=== PATIENT | female | born 1960 | race Caucasian/White ===

== ENCOUNTER 2018-07-05 08:00 | Outpatient (CLI) | payer OTHER | END 2018-07-05 09:00 | disposition home or self-care (01) | LOC: D.MAMMO 08:00 | PROVIDERS: ATTEND Obstetrics & Gynecology | DX: Z12.31 Encounter for screening mammogram for malignant neoplasm of breast (principal) ==

== ENCOUNTER 2018-08-30 19:04 | Inpatient (IN) | payer OTHER ==
[~2018-08-30] VITALS: Ht 162.6 cm; Wt 93.7 kg
[2018-08-30] MEDS ORDERED: GLUCOPHAGE500 MG PO (19:10)
[2018-08-30] MEDS ORDERED: LISINOPRIL20 MG PO (19:11)
[2018-08-30] MEDS ORDERED: NEURONTIN 300300 MG PO (19:11)
[2018-08-30] MEDS ORDERED: INSULIN PEN (19:11)
[2018-08-30] MEDS ORDERED: CYCLOBENZAPRINE10 MG PO (19:11)
[2018-08-30] MEDS ORDERED: VISTARIL25 MG PO (19:11)
[2018-08-30] MEDS ORDERED: BUSPIRONE HCL30 MG PO (19:11)
[2018-08-30] MEDS ORDERED: NORVASC10 MG PO (19:11)
[2018-08-30] MEDS ORDERED: SEROQUEL25 MG PO (19:12)
[2018-08-30] MEDS ORDERED: TRICEBA (19:12)
--- NOTE | 2018-08-30 19:25 | NUR ---
PT TRANSPORTED TO CT VIA STRETCHER AT THIS TIME. NO DISTRESS NOTED.
--- NOTE | 2018-08-30 20:44 | NUR ---
CONTACTED [facility] FOR PSYCH SCREENING. ADVISED PROM BURN OFF OPERATOR.
--- NOTE | 2018-08-30 21:02 | NUR ---
DIFFICULT IV STICK. EDP DOWNEN AT BEDSIDE TO INSERT EJ.
[2018-08-30 21:05] LABS: BASOPHILS 0.5 % (0-2); EOSINOPHILS 2.8 % (0-7); HEMATOCRIT 37.2 % (36.0-48.0); HEMOGLOBIN 11.9 g/dL (12-16); IMMATURE GRANULOCYTES 0.2 % (0-5); LYMPHOCYTES 27.9 % (15-50); MCV 61.4 fL (80.0-100.0); MEAN PLATELET VOLUME 9.3 fL (7.4-10.4); MONOCYTES 4.8 % (2-11); NEUTROPHILS 63.8 % (40-80); PLATELET COUNT 267 10x3/uL (130-400); RBC 6.06 10x6/uL (4.00-5.40); RDW 15.9 % (11.5-14.5); WBC 8.2 10x3/uL (4.8-10.8)
[2018-08-30 21:09] LABS: MCH 19.6 pg (26.0-34.0)
--- NOTE | 2018-08-30 21:10 | NUR ---
DR FRANK NOTIFIED AND REVIEWED PT BEHAVIOR AND ASSESSMENT RESULTS. PT IS A LOW RISK PER DR FRANK. DR FRANK STATED TO GIVE RESOURCES TO PT AT TIME OF DISCHARGE. NO FURTHER ORDERS AT THIS TIME. RESOURCES REVIEWED WITH PT AND SHE VERBALIZED UNDERSTANDING.
[2018-08-30 21:15] LABS: APTT 35.2 SECONDS (22.8-39.4); INR 1.06 (0.85-1.17); PROTIME 13.3 SECONDS (11.6-15.0)
--- NOTE | 2018-08-30 21:24 | NUR ---
PER PSYCH SCREEN PATIENT LOW RISK
[2018-08-30 21:36] LABS: ALKALINE PHOSPHATASE 125 U/L (46-116); ALT (SGPT) 32 U/L (10-68); BILIRUBIN - TOTAL 0.42 mg/dL (0.2-1.3); CALC OSMOLALITY 283 mosm/kg (275-300); CALCIUM 9.1 mg/dL (8.5-10.1); CARBON DIOXIDE 28.5 mmol/L (21.0-32.0); CHLORIDE - SERUM 106 mmol/L (98-107); CREATININE - SERUM 0.8 mg/dL (0.6-1.3); GLUCOSE 98 mg/dL (74-106); PROTEIN - SERUM 7.6 g/dL (6.4-8.2); SODIUM 141 mmol/L (136-145); UREA NITROGEN 20 mg/dL (7-18); eGFR NON AFRICAN AMERICAN 77 mL/min (90-120)
[2018-08-30 21:47] LABS: CREATINE KINASE 97 UL (21-215); MAGNESIUM - SERUM 1.9 mg/dL (1.8-2.4); THYROID STIMULATING HORMONE 3.38 uIU/mL (0.36-3.74)
[2018-08-30 21:48] VITALS: BP 119/77
[2018-08-30 21:50] LABS: TROPONIN-I < 0.017 ng/mL (0.000-0.060)
--- NOTE | 2018-08-30 21:52 | NUR ---
PT LAYING IN BED. NO DISTRESS NOTED. COLOR WNL FOR RACE. PT DENIES IMPROVEMENT IN SYMPTOMS AT THIS TIME. PT STILL EXHIBITING SOME SLURRED SPEECH. FAMILY MEMBER AT BEDSIDE.
--- NOTE | 2018-08-30 23:59 | NUR ---
PLACED PATIENT ON BEDPAN. DECREASED MOVEMENT NOTED TO RIGHT SIDE AT THIS TIME. PT VOIDED CLEAR YELLOW URINE. LINENS CHANGED. BLANKET PROVIDED.
[2018-08-31] VITALS (7 sets, daily range): BP systolic 125–146; BP diastolic 59–84; Ht 162.6 cm; Wt 93.7 kg
--- NOTE | 2018-08-31 01:00 | NUR ---
PT MOVED TO DIFFERENT ROOM FOR CENTRAL LINE PLACEMENT.
--- NOTE | 2018-08-31 02:00 | NUR ---
PT STABLE, CALL [facility] WITHIN REACH, WILL CONTINUE TO MONITOR.
--- NOTE | 2018-08-31 03:12 | NUR ---
BHANU KEARNS, AAO X4, DENIES NEEDS, CALL LIGHT WITHIN REACH, WILL CONTINUE TO MONITOR.
[2018-08-31] MEDS ORDERED: SEROQUEL25 MG PO (04:29)
--- NOTE | 2018-08-31 06:24 | NUR ---
PATIENT UNABLE TO MOVE RIGHT ARM AND LEG, SYMPTOMS WORSE SINCE INITIAL ASSESSMENT UPON PATIENT ARRIVING TO FLOOR. PATIENT CAN LIGHTLY SQUEEZE MY HAND. SHE CAN FEEL ME RUNNING MY FINGERS UP AND DOWN FEET. NO ROM. ARMANI NEWELL. ORDERS GIVEN FOR STAT MRI OF BRAIN.
[2018-08-31 11:02] LABS: CHOL - HDL RATIO 3.7 ratio (2.3-4.1); LDL-HDL RATIO 2.2 ratio (1.5-3.5)
--- NOTE | 2018-08-31 11:31 | NUR ---
I have reviewed this patient and I concur with the Shift Assessment completed by the Licensed Practical Nurse today this shift.
[2018-08-31 16:03] LABS: % SATURATION 24 % (15-55); IRON 77 ug/dl (35-150); TOTAL IRON BIND CAPACITY 315 ug/dl (260-445); UNSAT IRON BIND CAPACITY 238 ug/dl (150-375)
--- NOTE | 2018-08-31 17:00 | MORECARE ---
CASE MANAGEMENT DISCHARGE SUMMARY PATIENT: WALLY DUMONT UNIT: [id number] ADM DATE: 08/31/18 AGE: 58 : 56 SEX: F ROOM/BED: D.2109 AUTHOR: TATO AKERS PHYSICIAN: REFERRING PHYSICIAN: NINA GUTIERREZ MD DATE OF SERVICE: 08/31/18 Discharge Plan Patient Name: WALLY DUMONT [facility] [facility] 1960 Planned Disposition: Inpatient Rehab Anticipated Discharge Date: 09/01/18 Discharge Date: Expected LOS: 1 Initial Reviewer: [email or web address] Initial Review Date: 08/31/2018 Generated: 08/31/18 6:00 pm DCPIA - Discharge Planning Initial Assessment Updated by [email or web address]: Rodolfo Whalen on 08/31/18 4:54 pm * Is the patient Alert and Oriented? Yes * How many steps to enter\exit or inside your home? * PCP KING MAKER SHI AT [facility] * Pharmacy [facility] * Preadmission Environment Residential * Facility Name [facility] * ADLs Independent * Equipment None * Other Equipment NO MEDICAL EQUIPMENT PROVIDER PREFERENCE * List name and contact numbers for known caregivers / representatives who currently or will assist patient after discharge: VALERIE MCKNIGHT, HISTORY FACULTY MEMBER, * Verbal permission to speak to the caregivers and representatives has been obtained from the patient. N/A * Community resources currently utilized None * Please name any agencies selected above. NONE * Additional services required to return to the preadmission environment? Yes * Can the patient safely return to the preadmission environment? Yes * Has this patient been hospitalized within the prior 30 days at any hospital? No Patient Name: WALLY DUMONT Page [phone] at 1700 All edits/amendments must be made on the electronic document DICTATION DATE: 08/31/181658 PHYSICAL THERAPY DIRECTOR: MOLLY 08/31/181658 RPT#: [id number] DC DATE: STATUS: ADM IN [facility] [address] [place] [address] END OF REPORT
--- NOTE | 2018-08-31 17:10 | MORECARE ---
CASE MANAGEMENT DISCHARGE SUMMARY PATIENT: WALLY DUMONT UNIT: [id number] ADM DATE: 08/31/18 AGE: 58 : 56 SEX: F ROOM/BED: D.2105 AUTHOR: OSWALD,DOC PHYSICIAN: REFERRING PHYSICIAN: NINA GUTIERREZ MD DATE OF SERVICE: 08/31/18 Discharge Plan Patient Name: WALLY DUMONT Facility: [facility]:[place] : 1960 Planned Disposition: Inpatient Rehab Anticipated Discharge Date: 09/01/18 Discharge Date: Expected LOS: 1 Initial Reviewer: [email or web address] Initial Review Date: 08/31/2018 Generated: 08/31/18 6:09 pm Comments DCP- Discharge Planning Updated by [email or web address]: Rodolfo Whalen on 08/31/18 4:[address] Patient Name: WALLY DUMONT Admission Status: ER Accout number: [id number] Admission Date: 08-31-2018 : 1960 Admission Diagnosis: Attending: NINA GUTIERREZ Current LOS: 1 Anticipated DC Date: 09-01-2018 Planned Disposition: Inpatient Rehab Primary Insurance: [employer] INS EXCHANGE PLANNED EXTERNAL PROVIDER: [facility] INPATIENT REHAB Discharge Planning Comments: CM SPOKE TO DR. GUTIERREZ WHO INFORMED CM THAT PT WILL NEED REHAB PLACEMENT. CM MET WITH PT IN ROOM TO DISCUSS DISCHARGE PLANNING AND NEEDS. PT REPORTS LIVING AT A CHEM FREE HOUSE WITH FOUR OTHER WOMEN, PT WAS LIVING INDEPENDENTLY WITH NO MEDICAL EQUIPMENT OR OUTSIDE SERVICES ASSISTING IN THE HOME PRIOR TO THIS EVENT. CM DISCUSSED AVAILABILITY OF HOME HEALTH, REHAB SERVICES AND MEDICAL EQUIPMENT. PT REPORTS HAVING AMBETTER THROUGH AFFORDABLE HEALTHCARE ACT AND WOULD LIKE REHAB IF IT IS AVAILABLE. PT IS TEARFUL BUT ACCEPTING THAT SHE MAY HAVE TO GO TO A [facility] FACILITY IF NECESSARY. CM DISCUSSED REHAB AT [facility], PT IN AGREEMENT IF THEY WILL ACCEPT HER INSURANCE. PT HAS NOT HAD ANY HOSPITAL STAYS IN THE YEAR AND SHOULD HAVE ACUTE DAYS FOR REHAB. CM CALLED ELLIOT AT [facility], . ELLIOT REPORTS PT IS GOOD CANDIDATE FOR REHAB SERVICES, THEY WILL PROCESS REFERRAL AND ATTEMPT TO GET INSURANCE AUTHORIZATION FOR SERVICES WHEN REFERRAL IS RECEIVED. CM WAITING THERAPY EVALUATIONS AND WILL FAX REFERRAL TO [facility] INPATIENT REHAB SOON POSSIBLE. Fly Rail Operator: Rodolfo Whalen DCPIA - Discharge Planning Initial Assessment Updated by [email or web address]: Rodolfo Whalen on 08/31/18 4:54 pm * Is the patient Alert and Oriented? Yes * How many steps to enter\exit or inside your home? * PCP KAYLA OSULLIVAN AT [facility] * Pharmacy [facility] * Preadmission Environment Alf * Facility Name [facility] * ADLs Independent * Equipment None * Other Equipment NO MEDICAL EQUIPMENT PROVIDER PREFERENCE * List name and contact numbers for known caregivers / representatives who currently or will assist patient after discharge: VALERIE MCKNIGHT, ROOM SERVICE ASSOCIATE, * Verbal permission to speak to the caregivers and representatives has been obtained from the patient. N/A * Community resources currently utilized None * Please name any agencies selected above. NONE * Additional services required to return to the preadmission environment? Yes * Can the patient safely return to the preadmission environment? Yes * Has this patient been hospitalized within the prior 30 days at any hospital? No Last DP export: 08/31/18 4:00 p Patient Name: WALLY DUMONT Page 38854 at 1710 All edits/amendments must be made on the electronic document DICTATION DATE: 08/31/181708 INLAYER SILVER: MOLLY 08/31/181708 RPT#: [id number] DC DATE: STATUS: ADM IN [facility] [address] [place] [address] END OF REPORT
--- NOTE | 2018-08-31 19:27 | NUR ---
REPORT RECIEVED. PT STATES SHE IS UNCOMFORTABLE. MOVED PT UP IN BED. PILLOWS PLACES UNDER RT KNEE AND RT ARM. FAMILY IS AT BEDSIDE. CALL LIGHT WITHIN REACH. BED IN LOWEST POSITION. NO S/S OF DISTRESS. BREATHING EVEN AND UNLABORED. PT FARZANA ANY NEEDS AT THIS TIME. WILL CONT POC.
--- NOTE | 2018-08-31 20:00 | NUR ---
PT TRYING TO GET OUT OF BED. PT SCREAMING FOR HELP. PT STATES SHE HAS BEEN ON THE CALL LIGHT FOR 30 MINS AND NEEDING TO USE THE BATHROOM. PT IS CRYING AND ANXIOUS. GOT PT TO BED SIDE LUCIANO WITH HELP OF PROJECT DIRECTOR. PT CALMED DOWN AFTER 5MINS. PT BACK TO BED WITH HELP OF PROJECT DIRECTOR. PT FARZANA ANY FURTHER NEEDS AT THIS TIME. REASSURED PT THAT WHEN ON THE CALL LIGHT I WILL BE THERE SOON I CAN AND TO NOT GET OUT OF BED WITHOUT ASSISTANCE. PT VERBLIZED UNDERSTANDING. CALL LIGHT WITHIN REACH. BED IN LOWEST POSITION. WILL CONT POC.
[2018-08-31 22:43] LABS: APPEARANCE CLEAR (CLEAR); BACTERIA FEW /hpf (NONE SEEN); BILIRUBIN NEGATIVE (NEGATIVE); COLOR YELLOW (YELLOW); GLUCOSE NEGATIVE (NEGATIVE); KETONE NEGATIVE (NEGATIVE); NITRITE NEGATIVE (NEGATIVE); PROTEIN NEGATIVE (NEGATIVE); RED CELLS - URINE OCC /hpf (0-5); SPECIFIC GRAVITY 1.015 (1.005-1.020); UROBILINOGEN NORMAL (NORMAL); WHITE CELLS - URINE 0-5 /hpf (0-5)
[2018-09-01] VITALS: BP 111/72
--- NOTE | 2018-09-01 00:30 | NUR ---
PT RESTING AT THIS TIME. BREATHING EVEN AND UNLABORED. NO S/S OF DISTRESS. CALL LIGHT WITHIN REACH. BED IN LOWEST POSITION. NO NEEDS AT THIS TIME. WILL CONT. WITH POC.
--- NOTE | 2018-09-01 01:39 | NUR ---
PT UP TO BED SIDE TOILET WITH 2 PERSON ASSIST. PT REFUSES THE BED GRANDA. WILL CONT TO ENCOURAGE THE USE OF A BED GRANDA.
[2018-09-01 04:00] VITALS: BP 120/62
[2018-09-01 05:57] LABS: BASOPHILS 0.7 % (0-2); EOSINOPHILS 3.6 % (0-7); HEMOGLOBIN 10.8 g/dL (12-16); IMMATURE GRANULOCYTES 0.2 % (0-5); LYMPHOCYTES 33.6 % (15-50); MCHC 31.8 g/dL (31.0-37.0); MCV 61.2 fL (80.0-100.0); MEAN PLATELET VOLUME 9.3 fL (7.4-10.4); MONOCYTES 6.5 % (2-11); NEUTROPHILS 55.4 % (40-80); PLATELET COUNT 222 10x3/uL (130-400); RBC 5.56 10x6/uL (4.00-5.40); RDW 15.8 % (11.5-14.5)
[2018-09-01 06:26] LABS: MCH 19.4 pg (26.0-34.0)
[2018-09-01 06:27] LABS: CALC OSMOLALITY 286 mosm/kg (275-300); CALCIUM 8.7 mg/dL (8.5-10.1); CARBON DIOXIDE 28.2 mmol/L (21.0-32.0); CHLORIDE - SERUM 108 mmol/L (98-107); CHOL - HDL RATIO 3.7 ratio (2.3-4.1); CHOLESTEROL, TOTAL 147 mg/dL (0-200); CREATININE - SERUM 0.6 mg/dL (0.6-1.3); GLUCOSE 103 mg/dL (74-106); HDL CHOLESTEROL 40 mg/dL (32-96); LDL CHOLESTEROL 85 mg/dL (0-100); LDL-HDL RATIO 2.1 ratio (1.5-3.5); SODIUM 144 mmol/L (136-145); TRIGLYCERIDE 112 mg/dL (30-200); eGFR NON AFRICAN AMERICAN > 90 mL/min (90-120)
[2018-09-01 06:28] LABS: UREA NITROGEN 12 mg/dL (7-18)
--- NOTE | 2018-09-01 06:43 | NUR ---
PT LAYING ON LEFT SIDE. BREATHING EVEN AND UNLABORED. NO S/S OF DISTRESS. CLV PATENT NS @ 75ML/HR. PT FARZANA ANY NEEDS AT THIS TIME. CALL LIGHT WITHIN REACH. BED IN LOWEST POSITION. WILL CONT WITH POC.
--- NOTE | 2018-09-01 08:41 | NUR ---
RECIEVED REPORT. PATIENT IS AWAKE AND ALERT. SHE IS ANXIOUS AND FRUSTRATED AT THIS TIME. 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
--- NOTE | 2018-09-01 08:50 | MORECARE ---
CASE MANAGEMENT DISCHARGE SUMMARY PATIENT: WALLY DUMONT UNIT: [id number] ADM DATE: 08/31/18 AGE: 58 : 56 SEX: F ROOM/BED: D.210 AUTHOR: OSWALD,DOC PHYSICIAN: REFERRING PHYSICIAN: NINA GUTIERREZ MD DATE OF SERVICE: 09/01/18 Discharge Plan Patient Name: WALLY DUMONT Facility: [facility]:[place] : 1960 Planned Disposition: Inpatient Rehab Anticipated Discharge Date: 09/01/18 Discharge Date: Expected LOS: 1 Initial Reviewer: [email or web address] Initial Review Date: 08/31/2018 Generated: 09/01/18 9:50 am Comments DCP- Discharge Planning Updated by [email or web address]: Rodolfo Whalen on 08/31/18 4:[address] Patient Name: WALLY DUMONT Admission Status: ER Accout number: [id number] Admission Date: 08-31-2018 : 1960 Admission Diagnosis: Attending: NINA GUTIERREZ Current LOS: 1 Anticipated DC Date: 09-01-2018 Planned Disposition: Inpatient Rehab Primary Insurance: [employer] INS EXCHANGE PLANNED EXTERNAL PROVIDER: [facility] INPATIENT REHAB Discharge Planning Comments: CM SPOKE TO DR. GUTIERREZ WHO INFORMED CM THAT PT WILL NEED REHAB PLACEMENT. CM MET WITH PT IN ROOM TO DISCUSS DISCHARGE PLANNING AND NEEDS. PT REPORTS LIVING AT A CHEM FREE HOUSE WITH FOUR OTHER WOMEN, PT WAS LIVING INDEPENDENTLY WITH NO MEDICAL EQUIPMENT OR OUTSIDE SERVICES ASSISTING IN THE HOME PRIOR TO THIS EVENT. CM DISCUSSED AVAILABILITY OF HOME HEALTH, REHAB SERVICES AND MEDICAL EQUIPMENT. PT REPORTS HAVING AMBETTER THROUGH AFFORDABLE HEALTHCARE ACT AND WOULD LIKE REHAB IF IT IS AVAILABLE. PT IS TEARFUL BUT ACCEPTING THAT SHE MAY HAVE TO GO TO A RETIREMENT FACILITY IF NECESSARY. CM DISCUSSED REHAB AT [facility], PT IN AGREEMENT IF THEY WILL ACCEPT HER INSURANCE. PT HAS NOT HAD ANY HOSPITAL STAYS IN THE YEAR AND SHOULD HAVE ACUTE DAYS FOR REHAB. CM CALLED ELLIOT AT [facility], . ELLIOT REPORTS PT IS GOOD CANDIDATE FOR REHAB SERVICES, THEY WILL PROCESS REFERRAL AND ATTEMPT TO GET INSURANCE AUTHORIZATION FOR SERVICES WHEN REFERRAL IS RECEIVED. CM WAITING THERAPY EVALUATIONS AND WILL FAX REFERRAL TO [facility] INPATIENT REHAB SOON POSSIBLE. Slab Lifting Supervisor: Rodolfo Whalen DCPIA - Discharge Planning Initial Assessment Updated by [email or web address]: Rodolfo Whalen on 08/31/18 4:54 pm * Is the patient Alert and Oriented? Yes * How many steps to enter\exit or inside your home? * PCP KAYLA OSULLIVAN AT [facility] * Pharmacy [facility] * Preadmission Environment Chcf * Facility Name [facility] * ADLs Independent * Equipment None * Other Equipment NO MEDICAL EQUIPMENT PROVIDER PREFERENCE * List name and contact numbers for known caregivers / representatives who currently or will assist patient after discharge: VALERIE MCKNIGHT, LINE WORKER, * Verbal permission to speak to the caregivers and representatives has been obtained from the patient. N/A * Community resources currently utilized None * Please name any agencies selected above. NONE * Additional services required to return to the preadmission environment? Yes * Can the patient safely return to the preadmission environment? Yes * Has this patient been hospitalized within the prior 30 days at any hospital? No External Providers External Provider: [facility] Next Contact Date: 09/01/2018 Service Request Date: Service Type: Resolution: Reviewer: Comments: Last DP export: 08/31/18 4:09 p Patient Name: WALLY DUMONT Page [phone] at 0850 All edits/amendments must be made on the electronic document DICTATION DATE: 09/01/1849 AVIONICS SYSTEMS REPAIRER: MOLLY 09/01/18 0849 RPT#: [id number] DC DATE: STATUS: ADM IN [facility] [address] [place] [address] END OF REPORT
--- NOTE | 2018-09-01 08:58 | MORECARE ---
CASE MANAGEMENT DISCHARGE SUMMARY PATIENT: WALLY DUMONT UNIT: [id number] ADM DATE: 08/31/18 AGE: 58 : 56 SEX: F ROOM/BED: D.2105 AUTHOR: OSWALD,DOC PHYSICIAN: REFERRING PHYSICIAN: NINA GUTIERREZ MD DATE OF SERVICE: 09/01/18 Discharge Plan Patient Name: WALLY DUMONT Facility: [facility]:[place] : 1960 Planned Disposition: Inpatient Rehab Anticipated Discharge Date: 09/01/18 Discharge Date: Expected LOS: 1 Initial Reviewer: [email or web address] Initial Review Date: 08/31/2018 Generated: 09/01/18 9:57 am Comments DCP- Discharge Planning Updated by [email or web address]: Rodolfo Whalen on 09/01/18 7:[address] Patient Name: WALLY DUMONT Encounter No: [id number] : 1960 Primary Insurance: [employer] INS EXCHANGE Anticipated DC Date: 09-01-2018 Planned Disposition: Inpatient Rehab External Planned Provider: [facility] DCP follow-up note: CM [facility], . CM WAITING OCCUPTATIONAL THERAPY EVALUATION AND WILL FAX TO [facility] WHEN DOCUMENTED. THIS IS REQUIRED FOR INSURANCE AUTHORIZATION PT HAS MANAGED MEDICAID INSURANCE. JULIEN DURAND DCP- Discharge Planning Updated by [id number]: Rodolfo Whalen on 08/31/18 4:[address] Patient Name: WALLY DUMONT Admission Status: ER Accout number: [id number] Admission Date: 08-31-2018 : 1960 Admission Diagnosis: Attending: NINA GUTIERREZ Current LOS: 1 Anticipated DC Date: 09-01-2018 Planned Disposition: Inpatient Rehab Primary Insurance: [employer] INS EXCHANGE PLANNED EXTERNAL PROVIDER: [facility] INPATIENT REHAB Discharge Planning Comments: CM SPOKE TO DR. GUTIERREZ WHO INFORMED CM THAT PT WILL NEED REHAB PLACEMENT. CM MET WITH PT IN ROOM TO DISCUSS DISCHARGE PLANNING AND NEEDS. PT REPORTS LIVING AT A CHEM FREE HOUSE WITH FOUR OTHER WOMEN, PT WAS LIVING INDEPENDENTLY WITH NO MEDICAL EQUIPMENT OR OUTSIDE SERVICES ASSISTING IN THE HOME PRIOR TO THIS EVENT. CM DISCUSSED AVAILABILITY OF HOME HEALTH, REHAB SERVICES AND MEDICAL EQUIPMENT. PT REPORTS HAVING AMBETTER THROUGH AFFORDABLE HEALTHCARE ACT AND WOULD LIKE REHAB IF IT IS AVAILABLE. PT IS TEARFUL BUT ACCEPTING THAT SHE MAY HAVE TO GO TO A [facility] FACILITY IF NECESSARY. CM DISCUSSED REHAB AT [facility], PT IN AGREEMENT IF THEY WILL ACCEPT HER INSURANCE. PT HAS NOT HAD ANY HOSPITAL STAYS IN THE YEAR AND SHOULD HAVE ACUTE DAYS FOR REHAB. CM CALLED ELLIOT AT [facility], . ELLIOT REPORTS PT IS GOOD CANDIDATE FOR REHAB SERVICES, THEY WILL PROCESS REFERRAL AND ATTEMPT TO GET INSURANCE AUTHORIZATION FOR SERVICES WHEN REFERRAL IS RECEIVED. CM WAITING THERAPY EVALUATIONS AND WILL FAX REFERRAL TO [facility] INPATIENT REHAB SOON POSSIBLE. Edge Worker: Rodolfo Whalen DCPIA - Discharge Planning Initial Assessment Updated by [email or web address]: Rodolfo Whalen on 08/31/18 4:54 pm * Is the patient Alert and Oriented? Yes * How many steps to enter\exit or inside your home? * PCP KAYLA OSULLIVAN AT [facility] * Pharmacy [facility] * Preadmission Environment Long-Term * Facility Name [facility] * ADLs Independent * Equipment None * Other Equipment NO MEDICAL EQUIPMENT PROVIDER PREFERENCE * List name and contact numbers for known caregivers / representatives who currently or will assist patient after discharge: VALERIE MCKNIGHT, SECRETARIAL TEACHER, * Verbal permission to speak to the caregivers and representatives has been obtained from the patient. N/A * Community resources currently utilized None * Please name any agencies selected above. NONE * Additional services required to return to the preadmission environment? Yes * Can the patient safely return to the preadmission environment? Yes * Has this patient been hospitalized within the prior 30 days at any hospital? No Last DP export: 09/01/18 7:50 a Patient Name: WALLY DUMONT Page [phone] at 0858 All edits/amendments must be made on the electronic document DICTATION DATE: 09/01/18856 POTATO CHIP PROCESSING SUPERVISOR: MOLLY 09/01/18856 RPT#: [id number] DC DATE: STATUS: ADM IN [facility] [address] [place] [address] END OF REPORT
[2018-09-01 09:55] VITALS: BP 136/87
[2018-09-01 12:53] VITALS: BP 161/96
[2018-09-01 16:44] VITALS: BP 150/91
--- NOTE | 2018-09-01 19:46 | NUR ---
EVENING ROUNDS MADE. PATIENT IS AWAKE, A&OX4. PATIENT HAS RT CVL TO JUGULAR, PATENT WITH NS RUNNING @75ML/HR, DRSG SOILED WAS NOT CHANGED ON PREVIOUS SHIFT. PATIENT HAS LT FA SL, DRSG C/D/I. NEURO CHECK COMPLETE. PATIENT RIGHT SIDE FLACCID, SLURRED SPEECH. WILL CPOC. CL IN REACH. BED LOCKED AND LOWERED. FALL PRECAUTIONS IN PLACE. WILL CTM.
[2018-09-01 20:00] VITALS: BP 130/76; BP 136/70
--- NOTE | 2018-09-01 21:57 | NUR ---
PATIENT REQUESTION ATIVAN FOR ANXIETY. ADMINISTERED PRN ATIVAN PER ORDERS. CL IN REACH, BED LOCKED AND IN LOWESTED POSITION. PATIENT DENIES FURHTER NEEDS. BREATHING EVEN AND UNLABORED. WILL CTM.
--- NOTE | 2018-09-01 23:45 | NUR ---
CHANGED RT JUGULAR CVL DRSG.
--- NOTE | 2018-09-02 01:45 | NUR ---
PATIENT REQUESTED PRN ATIVAN FOR ANXIETY. DOSE ADMINISTER PER ORDERS. PATIENTS SHOWS NO S/SX OF DISTRESS. CL IN REACH, BED LOCKED AND IN LOWEST POSITION. WILL CTM.
[2018-09-02 04:00] VITALS: BP 102/56
[2018-09-02 04:58] LABS: BASOPHILS 0.8 % (0-2); HEMATOCRIT 33.5 % (36.0-48.0); HEMOGLOBIN 10.6 g/dL (12-16); IMMATURE GRANULOCYTES 0.2 % (0-5); LYMPHOCYTES 35.8 % (15-50); MCHC 31.6 g/dL (31.0-37.0); MCV 61.2 fL (80.0-100.0); MEAN PLATELET VOLUME 9.2 fL (7.4-10.4); MONOCYTES 6.5 % (2-11); NEUTROPHILS 52.7 % (40-80); PLATELET COUNT 214 10x3/uL (130-400); RBC 5.47 10x6/uL (4.00-5.40); RDW 15.8 % (11.5-14.5); WBC 6.2 10x3/uL (4.8-10.8)
[2018-09-02 05:16] LABS: MCH 19.4 pg (26.0-34.0)
[2018-09-02 05:18] LABS: CALC OSMOLALITY 288 mosm/kg (275-300); CALCIUM 8.2 mg/dL (8.5-10.1); CARBON DIOXIDE 27.7 mmol/L (21.0-32.0); CHLORIDE - SERUM 109 mmol/L (98-107); GLUCOSE 116 mg/dL (74-106); POTASSIUM - SERUM 3.8 mmol/L (3.5-5.1); SODIUM 144 mmol/L (136-145); UREA NITROGEN 14 mg/dL (7-18); eGFR NON AFRICAN AMERICAN 77 mL/min (90-120)
[2018-09-02 05:27] LABS: CREATININE - SERUM 0.8 mg/dL (0.6-1.3)
[2018-09-02 08:22] VITALS: BP 135/81
[2018-09-02] MEDS ORDERED: PLAVIX75 MG PO (13:19)
[2018-09-02] MEDS ORDERED: ZOCOR20 MG PO (13:20)
[2018-09-02] MEDS ORDERED: ASPIRIN325 MG PO (13:21)
[2018-09-02 13:22] VITALS: BP 132/76
--- NOTE | 2018-09-02 14:37 | NUR ---
PATIENT LAYING IN BED ON BACK WITH HOB ELEVATED 30 DEGREES. PATIENT IS VISITING WITH FAMILY. PATIENT DENIES ANY NEEDS OR PAIN. WILL CONTINUE TO MONITOR. SR UP X2 BED IN LOW POSITION AND CALL LIGHT IN REACH.
--- NOTE | 2018-09-02 17:33 | MORECARE ---
CASE MANAGEMENT DISCHARGE SUMMARY PATIENT: WALLY DUMONT UNIT: [id number] ADM DATE: 08/31/18 AGE: 58 : 56 SEX: F ROOM/BED: D.2108 AUTHOR: OSWALD,DOC PHYSICIAN: REFERRING PHYSICIAN: LUCRETIA KNIGHT MD DATE OF SERVICE: 09/02/18 Discharge Plan Patient Name: WALLY DUMONT Facility: [facility]:[place] : 1960 Planned Disposition: Inpatient Rehab Anticipated Discharge Date: 09/03/18 Discharge Date: Expected LOS: 3 Initial Reviewer: [id number] Initial Review Date: 08/31/2018 Generated: 09/02/18 6:33 pm Comments DCP- Discharge Planning Updated by [email or web address]: Rodolfo Whalen on 09/01/18 7:[address] Patient Name: WALLY DUMONT Encounter No: [id number] : 1960 Primary Insurance: [employer] INS EXCHANGE Anticipated DC Date: 09-01-2018 Planned Disposition: Inpatient Rehab External [facility] DCP follow-up note: CM [facility], . CM WAITING OCCUPTATIONAL THERAPY EVALUATION AND WILL FAX TO [facility] WHEN DOCUMENTED. THIS IS REQUIRED FOR INSURANCE AUTHORIZATION PT HAS MANAGED MEDICAID INSURANCE. JULIEN DURAND DCP- Discharge Planning Updated by [email or web address]: Rodolfo Whalen on 08/31/18 4:[address] Patient Name: WALLY DUMONT Admission Status: ER Accout number: [id number] Admission Date: 08-31-2018 : 1960 Admission Diagnosis: Attending: NINA GUTIERREZ Current LOS: 1 Anticipated DC Date: 09-01-2018 Planned Disposition: Inpatient Rehab Primary Insurance: [employer] INS EXCHANGE PLANNED EXTERNAL PROVIDER: [facility] INPATIENT REHAB Discharge Planning Comments: CM SPOKE TO DR. GUTIERREZ WHO INFORMED CM THAT PT WILL NEED REHAB PLACEMENT. CM MET WITH PT IN ROOM TO DISCUSS DISCHARGE PLANNING AND NEEDS. PT REPORTS LIVING AT A CHEM FREE HOUSE WITH FOUR OTHER WOMEN, PT WAS LIVING INDEPENDENTLY WITH NO MEDICAL EQUIPMENT OR OUTSIDE SERVICES ASSISTING IN THE HOME PRIOR TO THIS EVENT. CM DISCUSSED AVAILABILITY OF HOME HEALTH, REHAB SERVICES AND MEDICAL EQUIPMENT. PT REPORTS HAVING AMBETTER THROUGH AFFORDABLE HEALTHCARE ACT AND WOULD LIKE REHAB IF IT IS AVAILABLE. PT IS TEARFUL BUT ACCEPTING THAT SHE MAY HAVE TO GO TO A [facility] FACILITY IF NECESSARY. CM DISCUSSED REHAB AT [facility], PT IN AGREEMENT IF THEY WILL ACCEPT HER INSURANCE. PT HAS NOT HAD ANY HOSPITAL STAYS IN THE YEAR AND SHOULD HAVE ACUTE DAYS FOR REHAB. CM CALLED ELLIOT AT [facility], . ELLIOT REPORTS PT IS GOOD CANDIDATE FOR REHAB SERVICES, THEY WILL PROCESS REFERRAL AND ATTEMPT TO GET INSURANCE AUTHORIZATION FOR SERVICES WHEN REFERRAL IS RECEIVED. CM WAITING THERAPY EVALUATIONS AND WILL FAX REFERRAL TO [facility] INPATIENT REHAB SOON POSSIBLE. Log Check Scaler: Rodolfo Whalen DCPIA - Discharge Planning Initial Assessment Updated by [email or web address]: Rodolfo Whalen on 08/31/18 4:54 pm * Is the patient Alert and Oriented? Yes * How many steps to enter\exit or inside your home? * PCP KAYLA OSULLIVAN AT [facility] * Pharmacy [facility] * Preadmission Environment [facility] * Facility Name [facility] * ADLs Independent * Equipment None * Other Equipment NO MEDICAL EQUIPMENT PROVIDER PREFERENCE * List name and contact numbers for known caregivers / representatives who currently or will assist patient after discharge: VALERIE MCKNIGHT, SEASONAL WAREHOUSE ASSOCIATE, * Verbal permission to speak to the caregivers and representatives has been obtained from the patient. N/A * Community resources currently utilized None * Please name any agencies selected above. NONE * Additional services required to return to the preadmission environment? Yes * Can the patient safely return to the preadmission environment? Yes * Has this patient been hospitalized within the prior 30 days at any hospital? No Last DP export: 09/01/18 7:57 a Patient Name: WALLY DUMONT Page [id number] at 1733 All edits/amendments must be made on the electronic document DICTATION DATE: 09/02/181732 FORESTRY AID: MOLLY 09/02/181732 RPT#: [id number] DC DATE: STATUS: ADM IN [facility] [address] [place] [address] END OF REPORT
--- NOTE | 2018-09-02 19:51 | NUR ---
OT NOTE: PT REQUIRED MAX A FOR SUPINE TO SIT . PT REQUIRED MAX A FOR BED TO BSC TSF. PT REQUIRED MAX A FOR TOILETING TASKS. THANK YOU, ROXANA GELLER
[2018-09-02 20:00] VITALS: BP 125/82
--- NOTE | 2018-09-02 20:22 | NUR ---
ANSWERED PATIENT CALL KEYLA, PATIENT UPSET BECAUSE I WILL NOT MOVE HER TO THE BSC BECAUSE IT TAKES 3+ PEOPLE TO TRANSFER. PATIENT STARTED SCREAMING AND TELLING ME SHE WANT TO LEAVE I TRIED TO CALM PAITENT AND TELL HER WE HAVE OTHER OPITIONS BUT SHE STATES SHE WANTS ME TO LEAVE HER ROOM. I TOLD HER ONE MORE TIME THAT WE COULD CALL THE DOCTOR AND GET AN ALTERNITIVE OPTION. PATIENT CALLING FAMILY WHEN I WALKED OUT THE DOOR. BED IN LOCKED POSITION AND CALL LIGHT WITHIN REACH.
--- NOTE | 2018-09-02 21:05 | NUR ---
TALKED WITH DR. LAGUNA ABOUT PATIENT INABILITY TO GET TO THE BSC AND NOT WILLING TO USE BED GRANDA. HE GAVE THE ORDER TO START A MARTINEZ CATH TO HELP WITH THIS. WILL PLACE MARTINEZ ORDERED.
--- NOTE | 2018-09-02 22:54 | NUR ---
PLACED A 16 CZECH MARTINEZ IN PATIENT. PATIENT TOLERATED WELL. PATIENT PUT OUT 1100 RIGHT AWAY OF CLEAR YELLOW URINE. ASSISTED PATIENT IN CHANGING BED PADS AND CHANGING GOWN.
[2018-09-03] VITALS: BP 132/80
[2018-09-03 04:00] VITALS: BP 119/82
--- NOTE | 2018-09-03 04:33 | NUR ---
PATIENT REQUESTING ATIVAN, EXPLAINED TO HER IT IS NOT TIME AND SHE STATED SHE JUST HURTS ALL OVER AND IN HER BACK. EXPLAINED THAT WAS NOT THE PURPOSE OF THIS MEDICATION. SHE THEN ASKED FOR PAIN RELIEVER. WILL ADMINISTOR PAIN MEDICATIONS PER MAR
[2018-09-03 04:50] LABS: BASOPHILS 0.8 % (0-2); HEMATOCRIT 32.7 % (36.0-48.0); HEMOGLOBIN 10.3 g/dL (12-16); IMMATURE GRANULOCYTES 0.2 % (0-5); LYMPHOCYTES 33.4 % (15-50); MCH 19.4 pg (26.0-34.0); MCHC 31.5 g/dL (31.0-37.0); MCV 61.7 fL (80.0-100.0); MEAN PLATELET VOLUME 9.6 fL (7.4-10.4); MONOCYTES 5.7 % (2-11); NEUTROPHILS 55.9 % (40-80); PLATELET COUNT 216 10x3/uL (130-400); RDW 16.1 % (11.5-14.5); WBC 6.4 10x3/uL (4.8-10.8)
[2018-09-03 05:01] LABS: ANION GAP 9.6 mmol/L (8-16); CALCIUM 8.4 mg/dL (8.5-10.1); CARBON DIOXIDE 28.3 mmol/L (21.0-32.0); CREATININE - SERUM 0.9 mg/dL (0.6-1.3); POTASSIUM - SERUM 3.9 mmol/L (3.5-5.1)
--- NOTE | 2018-09-03 05:43 | NUR ---
I have reviewed this patient and I concur with the Shift Assessment completed by the Licensed Practical Nurse today this shift.
--- NOTE | 2018-09-03 07:10 | NUR ---
REPORT RECEIVED FROM MARINE EQUIPMENT DESIGN ENGINEER AND PATIENT CARE ASSUMED. PATIENT LAYING IN BED ON LEFT SIDE WITH EYES CLOSED AND BREATHING EVENLY. WILL CONTINUE WITH PLAN OF CARE. SR UP X 2 BED IN LOW POSTION AND CALL LIGHT IN REACH.
[2018-09-03 09:49] VITALS: BP 120/75
--- NOTE | 2018-09-03 10:30 | NUR ---
PATIENT IS STABLE AND UNCHANGED. VSS. WILL CONTINUE TO MONITOR. SR UPX 2 BED IN LOW POSTION AND CALL LIGHT IN REACH.
--- NOTE | 2018-09-03 10:40 | MORECARE ---
CASE MANAGEMENT DISCHARGE SUMMARY PATIENT: WALLY DUMONT UNIT: [id number] ADM DATE: 08/31/18 AGE: 58 : 56 SEX: F ROOM/BED: D.0099 AUTHOR: OSWALD,DOC PHYSICIAN: REFERRING PHYSICIAN: LUCRETIA KNIGHT MD DATE OF SERVICE: 09/03/18 Discharge Plan Patient Name: WALLY DUMONT Facility: [facility]:[place] : 1960 Planned Disposition: Inpatient Rehab Anticipated Discharge Date: 09/03/18 Discharge Date: Expected LOS: 3 Initial Reviewer: [email or web address] Initial Review Date: 08/31/2018 Generated: 09/03/18 11:40 am Comments DCP- Discharge Planning Updated by [id number]: Hui Gorman on 09/03/18 9:[address] TC TO [facility] AT 0845 THIS AM. TC TO [phone] FOR ELLIOT. AWAIT REVIEW OF CLINICAL AND DECISION REGARDING ADMISSION/ AUTH FROM PATIENT'S INSURER. CM FAXED UPDATE FROM 09/02/18- 09/03/18. DCP- Discharge Planning Updated by [id number]: Rodolfo Whalen on 09/01/18 7:[address] Patient Name: WALLY DUMONT Encounter No: [id number] : 1960 Primary Insurance: [employer] INS EXCHANGE Anticipated DC Date: 09-01-2018 Planned Disposition: Inpatient Rehab External Planned Provider: [facility] DCP follow-up note: FAXED REFERRAL FOR REHAB SERVICES TO [facility], . SHAHEEN WAITING OCCUPTATIONAL THERAPY EVALUATION AND WILL FAX TO [facility] WHEN DOCUMENTED. THIS IS REQUIRED FOR INSURANCE AUTHORIZATION PT HAS MANAGED MEDICAID INSURANCE. JULIEN DURAND DCP- Discharge Planning Updated by [id number]: Rodolfo Whalen on 08/31/18 4:[address] Patient Name: WALLY DUMONT Admission Status: ER Accout number: [id number] Admission Date: 08-31-2018 : 1960 Admission Diagnosis: Attending: NINA GUTIERREZ Current LOS: 1 Anticipated DC Date: 09-01-2018 Planned Disposition: Inpatient Rehab Primary Insurance: [employer] INS EXCHANGE PLANNED EXTERNAL PROVIDER: [facility]IENT [facility] Discharge Planning Comments: CM SPOKE TO DR. GUTIERREZ WHO INFORMED CM THAT PT WILL NEED REHAB PLACEMENT. CM MET WITH PT IN ROOM TO DISCUSS DISCHARGE PLANNING AND NEEDS. PT REPORTS LIVING AT A [facility] WITH FOUR OTHER WOMEN, PT WAS LIVING INDEPENDENTLY WITH NO MEDICAL EQUIPMENT OR OUTSIDE SERVICES ASSISTING IN THE HOME PRIOR TO THIS EVENT. CM DISCUSSED AVAILABILITY OF HOME HEALTH, REHAB SERVICES AND MEDICAL EQUIPMENT. PT REPORTS HAVING AMBETTER THROUGH [facility]ALTHCARE ACT AND WOULD LIKE REHAB IF IT IS AVAILABLE. PT IS TEARFUL BUT ACCEPTING THAT SHE MAY HAVE TO GO TO A [facility] FACILITY IF NECESSARY. CM DISCUSSED REHAB AT [facility], PT IN AGREEMENT IF THEY WILL ACCEPT HER INSURANCE. PT HAS NOT HAD ANY HOSPITAL STAYS IN THE YEAR AND SHOULD HAVE ACUTE DAYS FOR REHAB. CM CALLED ELLIOT AT [facility], . ELLIOT REPORTS PT IS GOOD CANDIDATE FOR REHAB SERVICES, THEY WILL PROCESS REFERRAL AND ATTEMPT TO GET INSURANCE AUTHORIZATION FOR SERVICES WHEN REFERRAL IS RECEIVED. CM WAITING THERAPY EVALUATIONS AND WILL FAX REFERRAL TO [facility] INPATIENT REHAB SOON POSSIBLE. Cook Fish Eggs: Rodolfo Whalen DCPIA - Discharge Planning Initial Assessment Updated by [id number]: Rodolfo Whalen on 08/31/18 4:54 pm * Is the patient Alert and Oriented? Yes * How many steps to enter\exit or inside your home? * [facility] * Pharmacy [facility] * Preadmission Environment Fdc * Facility Name [facility] * ADLs Independent * Equipment None * Other Equipment NO MEDICAL EQUIPMENT PROVIDER PREFERENCE * List name and contact numbers for known caregivers / representatives who currently or will assist patient after discharge: VALERIE MCKNIGHT, HELMET HAT PUNCHER, * Verbal permission to speak to the caregivers and representatives has been obtained from the patient. N/A * Community resources currently utilized None * Please name any agencies selected above. NONE * Additional services required to return to the preadmission environment? Yes * Can the patient safely return to the preadmission environment? Yes * Has this patient been hospitalized within the prior 30 days at any hospital? No Last DP export: 09/02/18 4:33 p Patient Name: WALLY DUMONT Page 38905 at 1040 All edits/amendments must be made on the electronic document DICTATION DATE: 09/03/18 104 FIBER LOCKING SUPERVISOR: MOLLY 09/03/18 1040 RPT#: [id number] DC DATE: STATUS: ADM IN [facility] [address] [place] [address] END OF REPORT
--- NOTE | 2018-09-03 13:58 | MORECARE ---
CASE MANAGEMENT DISCHARGE SUMMARY PATIENT: WALLY DUMONT UNIT: [id number] ADM DATE: 08/31/18 AGE: 58 : 56 SEX: F ROOM/BED: D.5831 AUTHOR: OSWALD,DOC PHYSICIAN: REFERRING PHYSICIAN: LUCRETIA KNIGHT MD DATE OF SERVICE: 09/03/18 Discharge Plan Patient Name: WALLY DUMONT Facility: [facility]:[place] : 1960 Planned Disposition: Inpatient Rehab Anticipated Discharge Date: 09/03/18 Discharge Date: Expected LOS: 3 Initial Reviewer: [id number] Initial Review Date: 08/31/2018 Generated: 09/03/18 2:58 pm Comments DCP- Discharge Planning Updated by [id number]: Sara Kitchen on 09/03/18 12:[address] [facility], PATIENT'S INSURANCE HAS AUTHORIZED REHAB. THEY WANT TO COME PICK HER UP AT 1600. WE ALREADY HAVE ORDER TO DISCHARGE SOON ACCEPTED TO REHAB. SHE HAS REQUESTED THAT MAR AND DC MED REC BE FAXED TO [phone]. PATIENT WILL GO TO ROOM 311, AND REPORT SHOULD BE CALLED TO [phone]. THIS INFORMATION HAS BEEN PASSED ONTO THE YOUTH CARE PROFESSIONAL AND THE [facility] NURSE. SINCE STEVE CROCKER HAS ASKED ABOUT THIS PATIENT AROUND 1ISH HOURS AGO, I HAVE ALSO PLACED A CALL TO HERE, AND AFTER NO ANSWER AT 1412 AND 2786, MESSAGE WAS LEFT WITH RONDA AT 1400. DCP- Discharge Planning Updated by [id number]: Hui Gorman on 09/03/18 9:[address] TC TO [facility] AT 0845 THIS AM. TC TO [phone] FOR ELLIOT. AWAIT REVIEW OF CLINICAL AND DECISION REGARDING ADMISSION/ AUTH FROM PATIENT'S INSURER. CM FAXED UPDATE FROM 09/02/18- 09/03/18. DCP- Discharge Planning Updated by [id number]: Rodolfo Strickland on 09/01/18 7:[address] Patient Name: WALLY DUMONT Encounter No: [id number] : 1960 Primary Insurance: [employer] INS EXCHANGE Anticipated DC Date: 09-01-2018 Planned Disposition: Inpatient Rehab External Planned Provider: [facility] DCP follow-up note: CM FAXED REFERRAL FOR REHAB SERVICES TO [facility], . CM WAITING OCCUPTATIONAL THERAPY EVALUATION AND WILL FAX TO [facility] WHEN DOCUMENTED. THIS IS REQUIRED FOR INSURANCE AUTHORIZATION PT HAS MANAGED MEDICAID INSURANCE. RODOLFO STRICKLAND, CASE MANAGEMENT DCP- Discharge Planning Updated by [id number]: Rodolfo Strickland on 08/31/18 4:[address] Patient Name: WALLY DUMONT Admission Status: ER Accout number: [id number] Admission Date: 08-31-2018 : 1960 Admission Diagnosis: Attending: NINA GUTIERREZ Current LOS: 1 Anticipated DC Date: 09-01-2018 Planned Disposition: Inpatient Rehab Primary Insurance: [employer] INS EXCHANGE PLANNED EXTERNAL PROVIDER: [facility] INPATIENT REH[facility] Discharge Planning Comments: CM SPOKE TO DR. GUTIERREZ WHO INFORMED CM THAT PT WILL NEED REHAB PLACEMENT. CM MET WITH PT IN ROOM TO DISCUSS DISCHARGE PLANNING AND NEEDS. PT REPORTS LIVING AT [facility] WITH FOUR OTHER WOMEN, PT WAS LIVING INDEPENDENTLY WITH NO MEDICAL EQUIPMENT OR OUTSIDE SERVICES ASSISTING IN THE HOME PRIOR TO THIS EVENT. CM DISCUSSED AVAILABILITY OF HOME HEALTH, REHAB SERVICES AND MEDICAL EQUIPMENT. PT REPORTS HAVING AMBETTER THROUGH [facility] AND WOULD LIKE REHAB IF IT IS AVAILABLE. PT IS TEARFUL BUT ACCEPTING THAT SHE MAY HAVE TO GO TO A [facility] FACILITY IF NECESSARY. CM DISCUSSED REHAB AT [facility], PT IN AGREEMENT IF THEY WILL ACCEPT HER INSURANCE. PT HAS NOT HAD ANY HOSPITAL STAYS IN THE YEAR AND SHOULD HAVE ACUTE DAYS FOR REHAB. CM CALLED ELLIOT AT [facility], . ELLIOT REPORTS PT IS GOOD CANDIDATE FOR REHAB SERVICES, THEY WILL PROCESS REFERRAL AND ATTEMPT TO GET INSURANCE AUTHORIZATION FOR SERVICES WHEN REFERRAL IS RECEIVED. CM WAITING THERAPY EVALUATIONS AND WILL FAX REFERRAL TO [facility] INPATIENT REHAB SOON POSSIBLE. Steam Plant Operator: Rodolfo Strickland DCPIA - Discharge Planning Initial Assessment Updated by [id number]: Rodolfo Strickland on 08/31/18 4:54 pm * Is the patient Alert and Oriented? Yes * How many steps to enter\exit or inside your home? * PCP KAYLA OSULLIVAN AT [facility] * Pharmacy [facility] * Preadmission Environment Half-Way * Facility Name [facility] * ADLs Independent * Equipment None * Other Equipment NO MEDICAL EQUIPMENT PROVIDER PREFERENCE * List name and contact numbers for known caregivers / representatives who currently or will assist patient after discharge: VALERIE MCKNIGHT, RESEARCH PROJECT COORDINATOR, * Verbal permission to speak to the caregivers and representatives has been obtained from the patient. N/A * Community resources currently utilized None * Please name any agencies selected above. NONE * Additional services required to return to the preadmission environment? Yes * Can the patient safely return to the preadmission environment? Yes * Has this patient been hospitalized within the prior 30 days at any hospital? No Last DP export: 09/03/18 9:40 a Patient Name: WALLY DUMONT Page 63600 at 1358 All edits/amendments must be made on the electronic document DICTATION DATE: 09/03/181356 MAINTENANCE SUPERINTENDENT: MOLLY 09/03/18 1357 RPT#: [id number] DC DATE: STATUS: ADM IN [facility] [address] [place] [address] END OF REPORT
--- NOTE | 2018-09-03 16:02 | MORECARE ---
CASE MANAGEMENT DISCHARGE SUMMARY PATIENT: WALLY DUMONT UNIT: [id number] ADM DATE: 08/31/18 AGE: 58 : 56 SEX: F ROOM/BED: D.2710 AUTHOR: OSWALD,DOC PHYSICIAN: REFERRING PHYSICIAN: LUCRETIA KNIGHT MD DATE OF SERVICE: 09/03/18 Discharge Plan Patient Name: WALLY DUMONT Facility: [facility]:[place] : 1960 Planned Disposition: Inpatient Rehab Anticipated Discharge Date: 09/03/18 Discharge Date: Expected LOS: 3 Initial Reviewer: [email or web address] Initial Review Date: 08/31/2018 Generated: 09/03/18 5:02 pm Comments DCP- Discharge Planning Updated by [id number]: Sara Kitchen on 09/03/18 12:[address] [facility], PATIENT'S INSURANCE HAS AUTHORIZED REHAB. THEY WANT TO COME PICK HER UP AT 1600. WE ALREADY HAVE ORDER TO DISCHARGE SOON ACCEPTED TO REHAB. SHE HAS REQUESTED THAT MAR AND DC MED REC BE FAXED TO [phone]. PATIENT WILL GO TO ROOM 311, AND REPORT SHOULD BE CALLED TO [phone]. THIS INFORMATION HAS BEEN PASSED ONTO THE REAL ESTATE ACCOUNTANT AND THE [facility] NURSE. SINCE STEVE CROCKER HAS ASKED ABOUT THIS PATIENT AROUND 1ISH HOURS AGO, I HAVE ALSO PLACED A CALL TO HERE, AND AFTER NO ANSWER AT 1412 AND 2786, MESSAGE WAS LEFT WITH RONDA AT 1400. DCP- Discharge Planning Updated by [id number]: Hui Gorman on 09/03/18 9:[address] TC TO [facility] AT 0845 THIS AM. TC TO [phone] FOR ELLIOT. AWAIT REVIEW OF CLINICAL AND DECISION REGARDING ADMISSION/ AUTH FROM PATIENT'S INSURER. CM FAXED UPDATE FROM 09/02/18- 09/03/18. DCP- Discharge Planning Updated by [id number]: Rodolfo Strickland on 09/01/18 7:[address] Patient Name: WALLY DUMONT Encounter No: [id number] : 1960 Primary Insurance: [employer] INS EXCHANGE Anticipated DC Date: 09-01-2018 Planned Disposition: Inpatient Rehab External Planned Provider: [facility] DCP follow-up note: CM FAXED REFERRAL FOR REHAB SERVICES TO [facility], . CM WAITING OCCUPTATIONAL THERAPY EVALUATION AND WILL FAX TO [facility] WHEN DOCUMENTED. THIS IS REQUIRED FOR INSURANCE AUTHORIZATION PT HAS MANAGED MEDICAID INSURANCE. RODOLFO STRICKLAND, CASE MANAGEMENT DCP- Discharge Planning Updated by [id number]: Rodolfo Strickland on 08/31/18 4:[address] Patient Name: WALLY DUMONT Admission Status: ER Accout number: [id number] Admission Date: 08-31-2018 : 1960 Admission Diagnosis: Attending: NINA GUTIERREZ Current LOS: 1 Anticipated DC Date: 09-01-2018 Planned Disposition: Inpatient Rehab Primary Insurance: [employer] INS EXCHANGE PLANNED EXTERNAL PROVIDER: [facility] INPATIENT REHAB Discharge Planning Comments: CM SPOKE TO DR. GUTIERREZ WHO INFORMED CM THAT PT WILL NEED REHAB PLACEMENT. CM MET WITH PT IN ROOM TO DISCUSS DISCHARGE PLANNING AND NEEDS. PT REPORTS LIVING AT A [facility] WITH FOUR OTHER WOMEN, PT WAS LIVING INDEPENDENTLY WITH NO MEDICAL EQUIPMENT OR OUTSIDE SERVICES ASSISTING IN THE HOME PRIOR TO THIS EVENT. CM DISCUSSED AVAILABILITY OF HOME HEALTH, REHAB SERVICES AND MEDICAL EQUIPMENT. PT REPORTS HAVING AMBETTER THROUGH [facility]ALTH[facility]ARE [facility] AND WOULD LIKE REHAB IF IT IS AVAILABLE. PT IS TEARFUL BUT ACCEPTING THAT SHE MAY HAVE TO GO TO A [facility] FACILITY IF NECESSARY. CM DISCUSSED REHAB AT [facility], PT IN AGREEMENT IF THEY WILL ACCEPT HER INSURANCE. PT HAS NOT HAD ANY HOSPITAL STAYS IN THE YEAR AND SHOULD HAVE ACUTE DAYS FOR REHAB. CM CALLED ELLIOT AT [facility], . ELLIOT REPORTS PT IS GOOD CANDIDATE FOR REHAB SERVICES, THEY WILL PROCESS REFERRAL AND ATTEMPT TO GET INSURANCE AUTHORIZATION FOR SERVICES WHEN REFERRAL IS RECEIVED. CM WAITING THERAPY EVALUATIONS AND WILL FAX REFERRAL TO [facility] INPATIENT REHAB SOON POSSIBLE. Automotive Quality Engineer: Rodolfo Strickland DCPIA - Discharge Planning Initial Assessment Updated by [id number]: Rodolfo Strickland on 08/31/18 4:54 pm * Is the patient Alert and Oriented? Yes * How many steps to enter\exit or inside your home? * PCP KAYLA OSULLIVAN AT [facility] * Pharmacy [facility] * Preadmission Environment Long-Term * Facility Name [facility] * ADLs Independent * Equipment None * Other Equipment NO MEDICAL EQUIPMENT PROVIDER PREFERENCE * List name and contact numbers for known caregivers / representatives who currently or will assist patient after discharge: VALERIE MCKNIGHT, WEB SITE PROJECT MANAGER, * Verbal permission to speak to the caregivers and representatives has been obtained from the patient. N/A * Community resources currently utilized None * Please name any agencies selected above. NONE * Additional services required to return to the preadmission environment? Yes * Can the patient safely return to the preadmission environment? Yes * Has this patient been hospitalized within the prior 30 days at any hospital? No Last DP export: 09/03/18 12:58 p Patient Name: WALLY DUMONT Page 11379 at 1602 All edits/amendments must be made on the electronic document DICTATION DATE: 09/03/181601 HAND MOLDER AND CASTER: MOLLY 09/03/18 160 RPT#: [id number] DC DATE: STATUS: ADM IN [facility] [address] [place] [address] END OF REPORT
--- NOTE | 2018-09-03 16:10 | NUR ---
PATIENT IS STABLE AND VSS. ORDERS RECEIVED FOR DC. RIJ DC WITHOUT DIFFICULTY WITH ENTIRE CATHETER INTACT. VERBAL AND WRITTEN INSTRUCTIONS GIVEN TO PATIENT AND PATIENT VERBALIZED UNDERSTANDING. PATIENT UNABLE TO SIGN PAPER WORK. PATIENT THANKS THIS NURSE FOR TAKING GOOD CARE OF HER. INFORMED PATIENT IS WAS AN HONOR. FRIEND AT . CALLED REPORT TO [facility]. WAS INSTRUCTED TO NOT DC MARTINEZ CATHETER. DRIVEN FROM REHAB IN ROOM. PATIENT TRANSFERRED TO AND TRANSPORTED TO [facility] REHAB STAFF. PATIENT ACCOMPANIED BY FRIEND .
--- NOTE | 2018-09-03 16:11 | MORECARE ---
CASE MANAGEMENT DISCHARGE SUMMARY PATIENT: WALLY DUMONT UNIT: [id number] ADM DATE: 08/31/18 AGE: 58 : 56 SEX: F ROOM/BED: D.3363 AUTHOR: OSWALD,DOC PHYSICIAN: REFERRING PHYSICIAN: LUCRETIA KNIGHT MD DATE OF SERVICE: 09/03/18 Discharge Plan Patient Name: WALLY DUMONT Facility: [facility]:[place] : 1960 Planned Disposition: Inpatient Rehab Anticipated Discharge Date: 09/03/18 Discharge Date: Expected LOS: 3 Initial Reviewer: [id number] Initial Review Date: 08/31/2018 Generated: 09/03/18 5:11 pm Comments DCP- Discharge Planning Updated by [email or web address]: Hui Gorman on 09/03/18 3:[address] CHART COPY PREPARED W/ DISCHARGE INSTRUCTIONS AND DISCHARGE MED LIST IN PACKET. AWAIT TRANSPORT. DCP- Discharge Planning Updated by [id number]: Sara Kitchen on 09/03/18 12:[address] RECEIVED CALL FROM [facility], PATIENT'S INSURANCE HAS AUTHORIZED REHAB. THEY WANT TO COME PICK HER UP AT 1600. WE ALREADY HAVE ORDER TO DISCHARGE SOON ACCEPTED TO REHAB. SHE HAS REQUESTED THAT MAR AND DC MED REC BE FAXED TO [phone]. PATIENT WILL GO TO ROOM 311, AND REPORT SHOULD BE CALLED TO [phone]. THIS INFORMATION HAS BEEN PASSED ONTO THE [facility]ILI POWDER MIXER AND THE [facility] NURSE. SINCE STEVE CROCKER HAS ASKED ABOUT THIS PATIENT AROUND 1ISH HOURS AGO, I HAVE ALSO PLACED A CALL TO HERE, AND AFTER NO ANSWER AT 1412 AND 2786, MESSAGE WAS LEFT WITH RONDA AT 1400. DCP- Discharge Planning Updated by [id number]: Hui Gorman on 09/03/18 9:[address] TC [address] [facility] AT 0845 THIS AM. TC TO [phone] FOR ELLIOT. AWAIT REVIEW OF CLINICAL AND DECISION REGARDING ADMISSION/ AUTH FROM PATIENT'S INSURER. CM FAXED UPDATE FROM 09/02/18- 09/03/18. DCP- Discharge Planning Updated by [id number]: Rodolfo Strickland on 09/01/18 7:[address] Patient Name: WALLY DUMONT Encounter No: [id number] : 1960 Primary Insurance: [employer] INS EXCHANGE Anticipated DC Date: 09-01-2018 Planned Disposition: Inpatient Rehab External Planned Provider: [facility] DCP follow-up note: CM [facility], . CM WAITING OCCUPTATIONAL THERAPY EVALUATION AND WILL FAX TO [facility] WHEN DOCUMENTED. THIS IS REQUIRED FOR INSURANCE AUTHORIZATION PT HAS MANAGED MEDICAID INSURANCE. RODOLFO STRICKLAND, CASE MANAGEMENT DCP- Discharge Planning Updated by [id number]: Rodolfo Strickland on 08/31/18 4:[address] Patient Name: WALLY DUMONT Admission Status: ER Accout number: [id number] Admission Date: 08-31-2018 : 1960 Admission Diagnosis: Attending: NINA GUTIERREZ Current LOS: 1 Anticipated DC Date: 09-01-2018 Planned Disposition: Inpatient Rehab Primary Insurance: [employer] INS EXCHANGE PLANNED EXTERNAL PROVIDER: [facility]PAT[facility] Discharge Planning Comments: CM SPOKE TO DR. GUTIERREZ WHO INFORMED CM THAT PT WILL NEED REHAB PLACEMENT. CM MET WITH PT IN ROOM TO DISCUSS DISCHARGE PLANNING AND NEEDS. PT REPORTS LIVING AT A [facility] [facility] HOUSE WITH FOUR OTHER WOMEN, PT WAS LIVING INDEPENDENTLY WITH NO MEDICAL EQUIPMENT OR OUTSIDE SERVICES ASSISTING IN THE HOME PRIOR TO THIS EVENT. CM DISCUSSED AVAILABILITY OF HOME HEALTH, REHAB SERVICES AND MEDICAL EQUIPMENT. PT REPORTS HAVING AMBETTER THROUGH [facility]ALTHCARE ACT AND WOULD LIKE REHAB IF IT IS AVAILABLE. PT IS TEARFUL BUT ACCEPTING THAT SHE MAY HAVE TO GO TO A [facility] FACILITY IF NECESSARY. CM DISCUSSED REHAB AT [facility], PT IN AGREEMENT IF THEY WILL ACCEPT HER INSURANCE. PT HAS NOT HAD ANY HOSPITAL STAYS IN THE YEAR AND SHOULD HAVE ACUTE DAYS FOR REHAB. CM CALLED ELLIOT AT [facility], . ELLIOT REPORTS PT IS GOOD CANDIDATE FOR REHAB SERVICES, THEY WILL PROCESS REFERRAL AND ATTEMPT TO GET INSURANCE AUTHORIZATION FOR SERVICES WHEN REFERRAL IS RECEIVED. CM WAITING THERAPY EVALUATIONS AND WILL FAX REFERRAL TO [facility] SOON POSSIBLE. Robotics Specialist: Rodolfo Strickland DCPIA - Discharge Planning Initial Assessment Updated by [id number]: Rodolfo Strickland on 08/31/18 4:54 pm * Is the patient Alert and Oriented? Yes * How many steps to enter\exit or inside your home? * PCP KAYLA OSULLIVAN AT [facility] * Pharmacy [facility] * Preadmission Environment Care Home * Facility Name [facility] * ADLs Independent * Equipment None * Other Equipment NO MEDICAL EQUIPMENT PROVIDER PREFERENCE * List name and contact numbers for known caregivers / representatives who currently or will assist patient after discharge: VALERIE MCKNIGHT, NEURO INTENSIVIST PHYSICIAN, * Verbal permission to speak to the caregivers and representatives has been obtained from the patient. N/A * Community resources currently utilized None * Please name any agencies selected above. NONE * Additional services required to return to the preadmission environment? Yes * Can the patient safely return to the preadmission environment? Yes * Has this patient been hospitalized within the prior 30 days at any hospital? No Last DP export: 09/03/18 3:02 p Patient Name: WALLY DUMONT Page 46041 at 1611 All edits/amendments must be made on the electronic document DICTATION DATE: 09/03/18 161 DIE CASTING MACHINE MAINTAINER: MOLLY 09/03/181610 RPT#: [id number] DC DATE: STATUS: ADM IN [facility] [address] [place] [address] END OF REPORT
--- NOTE | 2018-09-03 16:50 | NUR ---
OT NOTE: PT COMPLETED RUE PROM AND POSITIONING. THANK YOU, ROXANA GELLER
--- NOTE | 2018-09-06 08:31 | MORECARE ---
CASE MANAGEMENT DISCHARGE SUMMARY PATIENT: WALLY DUMONT UNIT: [id number] ADM DATE: 08/31/18 AGE: 58 : 56 SEX: F ROOM/BED: D.1936 AUTHOR: OSWALD,DOC PHYSICIAN: REFERRING PHYSICIAN: LUCRETIA KNIGHT MD DATE OF SERVICE: 09/06/18 Discharge Plan Patient Name: WALLY DUMONT Facility: [facility]:[place] : 1960 Planned Disposition: Inpatient Rehab Anticipated Discharge Date: 09/03/18 Discharge Date: 09/03/2018 Expected LOS: 3 Initial Reviewer: [email or web address] Initial Review Date: 08/31/2018 Generated: 09/06/18 9:31 am Comments DCP- Discharge Planning Updated by [id number]: Hui Gorman on 09/03/18 3:[address] CHART COPY PREPARED W/ DISCHARGE INSTRUCTIONS AND DISCHARGE MED LIST IN PACKET. AWAIT TRANSPORT. DCP- Discharge Planning Updated by [id number]: Sara Kitchen on 09/03/18 12:[address] RECEIVED CALL FROM [facility], PATIENT'S INSURANCE HAS AUTHORIZED REHAB. THEY WANT TO COME PICK HER UP AT 1600. WE ALREADY HAVE ORDER TO DISCHARGE SOON ACCEPTED TO REHAB. SHE HAS REQUESTED THAT MAR AND DC MED REC BE FAXED TO [phone]. PATIENT WILL GO TO ROOM 311, AND REPORT SHOULD BE CALLED TO [phone]. THIS INFORMATION HAS BEEN PASSED ONTO THE INTERIOR DESIGN FACULTY MEMBER AND THE [facility] NURSE. SINCE STEVE CROCKER HAS ASKED ABOUT THIS PATIENT AROUND 1ISH HOURS AGO, I HAVE ALSO PLACED A CALL TO HERE, AND AFTER NO ANSWER AT 1412 AND 2786, MESSAGE WAS LEFT WITH RONDA AT 1400. DCP- Discharge Planning Updated by [id number]: Hui Gorman on 09/03/18 9:[address] TC TO [facility] AT 0845 THIS AM. TC TO [phone] FOR ELLI[facility]. AWAIT REVIEW OF CLINICAL AND DECISION REGARDING ADMISSION/ AUTH FROM PATIENT'S INSURER. CM FAXED UPDATE FROM 09/02/18- 09/03/18. DCP- Discharge Planning Updated by [id number]: Rodolfo Strickland on 09/01/18 7:[address] Patient Name: WALLY DUMONT Encounter No: [id number] : 1960 Primary Insurance: [employer] INS EXCHANGE Anticipated DC Date: 09-01-2018 Planned Disposition: Inpatient Rehab External Planned Provider: [facility] DCP follow-up note: CM [facility], . CM WAITING OCCUPTATIONAL THERAPY EVALUATION AND WILL FAX TO [facility] WHEN DOCUMENTED. THIS IS REQUIRED FOR INSURANCE AUTHORIZATION PT HAS MANAGED MEDICAID INSURANCE. RODOLFO STRICKLAND, CASE MANAGEMENT DCP- Discharge Planning Updated by [id number]: Rodolfo Strickland on 08/31/18 4:[address] Patient Name: WALLY DUMONT Admission Status: ER Accout number: [id number] Admission Date: 08-31-2018 : 1960 Admission Diagnosis: Attending: NINA GUTIERREZ Current LOS: 1 Anticipated DC Date: 09-01-2018 Planned Disposition: Inpatient Rehab Primary Insurance: [employer] INS EXCHANGE PLANNED EXTERNAL PROVIDER: [facility] Discharge Planning Comments: CM SPOKE TO DR. GUTIERREZ WHO INFORMED CM THAT PT WILL NEED REHAB PLACEMENT. CM MET WITH PT IN ROOM TO DISCUSS DISCHARGE PLANNING AND NEEDS. PT REPORTS LIVING AT A [facility] WITH FOUR OTHER WOMEN, PT WAS LIVING INDEPENDENTLY WITH NO MEDICAL EQUIPMENT OR OUTSIDE SERVICES ASSISTING IN THE HOME PRIOR TO THIS EVENT. CM DISCUSSED AVAILABILITY OF HOME HEALTH, REHAB SERVICES AND MEDICAL EQUIPMENT. PT REPORTS HAVING AMBETTER THROUGH [facility] AND WOULD LIKE REHAB IF IT IS AVAILABLE. PT IS TEARFUL BUT ACCEPTING THAT SHE MAY HAVE TO GO TO A ASSISTED FACILITY IF NECESSARY. CM DISCUSSED REHAB AT [facility], IN AGREEMENT IF THEY WILL ACCEPT HER INSURANCE. PT HAS NOT HAD ANY HOSPITAL STAYS IN THE YEAR AND SHOULD HAVE ACUTE DAYS FOR REHAB. CM CALLED [facility] AT [facility], . [facility] REPORTS PT IS GOOD CANDIDATE FOR REHAB SERVICES, THEY WILL PROCESS REFERRAL AND ATTEMPT TO GET INSURANCE AUTHORIZATION FOR SERVICES WHEN REFERRAL IS RECEIVED. CM WAITING THERAPY EVALUATIONS AND WILL FAX REFERRAL TO [facility] SOON POSSIBLE. Service Department Manager: Rodolfo Strickland DCPIA - Discharge Planning Initial Assessment Updated by [id number]: Rodolfo Cordovawell on 08/31/18 4:54 pm * Is the patient Alert and Oriented? Yes * How many steps to enter\exit or inside your home? * PCP KAYLA OSULLIVAN AT [facility] * Pharmacy [facility] * Preadmission Environment Retirement * Facility Name [facility] * ADLs Independent * Equipment None * Other Equipment NO MEDICAL EQUIPMENT PROVIDER PREFERENCE * List name and contact numbers for known caregivers / representatives who currently or will assist patient after discharge: VALERIE MCKNIGHT, MARKLOGIC DEVELOPER, * Verbal permission to speak to the caregivers and representatives has been obtained from the patient. N/A * Community resources currently utilized None * Please name any agencies selected above. NONE * Additional services required to return to the preadmission environment? Yes * Can the patient safely return to the preadmission environment? Yes * Has this patient been hospitalized within the prior 30 days at any hospital? No Last DP export: 09/03/18 3:11 p Patient Name: WALLY DUMONT Page [phone] at 0831 All edits/amendments must be made on the electronic document DICTATION DATE: 09/06/18830 SHOT PACKER: MOLLY 09/06/18830 RPT#: [id number] DC DATE:09/03/18 STATUS: DIS IN [facility] [address] [place] [address] END OF REPORT
== END 2018-09-03 17:09 | DRG 64 ==
LOC: D.ER 19:04 → D.M2 08-31 03:42
PROVIDERS: Family Medicine; Internal Medicine Nephrology; ADMIT Family Medicine; ATTEND Family Medicine
DX: I63.81 Other cerebral infarction due to occlusion or stenosis of small artery (principal); R53.2 Functional quadriplegia; G81.91 Hemiplegia, unspecified affecting right dominant side; N17.9 Acute kidney failure, unspecified; I10 Essential (primary) hypertension; E11.9 Type 2 diabetes mellitus without complications; D50.9 Iron deficiency anemia, unspecified; J44.9 Chronic obstructive pulmonary disease, unspecified; F41.9 Anxiety disorder, unspecified; R40.2354 Coma scale, best motor response, localizes pain, 24 hours or more after hospital admission; R40.2144 Coma scale, eyes open, spontaneous, 24 hours or more after hospital admission; R40.2244 Coma scale, best verbal response, confused conversation, 24 hours or more after hospital admission

== ENCOUNTER 2018-09-30 17:12 | Observation (INO) | payer OTHER ==
[~2018-09-30] VITALS: Ht 162.6 cm; Wt 102.5 kg
[~2018-09-30 17:12] MED LIST: ASPIRIN325 MG PO; BUSPIRONE HCL30 MG PO; CYCLOBENZAPRINE10 MG PO; GLUCOPHAGE500 MG PO; INSULIN PEN; LISINOPRIL20 MG PO; NEURONTIN 300300 MG PO; NORVASC10 MG PO; PLAVIX75 MG PO; SEROQUEL25 MG PO; TRICEBA; VISTARIL25 MG PO; ZOCOR20 MG PO
[2018-09-30 18:58] VITALS: BP 129/81
[2018-09-30 19:01] LABS: BASOPHILS 1.1 % (0-2); EOSINOPHILS 4.7 % (0-7); HEMOGLOBIN 11.8 g/dL (12-16); IMMATURE GRANULOCYTES 0.1 % (0-5); LYMPHOCYTES 32.4 % (15-50); MCH 19.7 pg (26.0-34.0); MCHC 31.9 g/dL (31.0-37.0); MCV 61.8 fL (80.0-100.0); MEAN PLATELET VOLUME 9.3 fL (7.4-10.4); MONOCYTES 5.9 % (2-11); NEUTROPHILS 55.8 % (40-80); PLATELET COUNT 253 10x3/uL (130-400); RBC 5.99 10x6/uL (4.00-5.40); RDW 16.3 % (11.5-14.5); WBC 7.4 10x3/uL (4.8-10.8)
[2018-09-30 19:14] LABS: ALBUMIN 3.7 g/dL (3.4-5.0); ALKALINE PHOSPHATASE 144 U/L (46-116); ALT (SGPT) 20 U/L (10-68); BILIRUBIN - TOTAL 0.32 mg/dL (0.2-1.3); CALC OSMOLALITY 287 mosm/kg (275-300); CALCIUM 9.1 mg/dL (8.5-10.1); CARBON DIOXIDE 29.1 mmol/L (21.0-32.0); CHLORIDE - SERUM 106 mmol/L (98-107); CREATININE - SERUM 0.8 mg/dL (0.6-1.3); GLUCOSE 104 mg/dL (74-106); POTASSIUM - SERUM 4.4 mmol/L (3.5-5.1); PROTEIN - SERUM 7.4 g/dL (6.4-8.2); SODIUM 144 mmol/L (136-145); UREA NITROGEN 16 mg/dL (7-18); eGFR NON AFRICAN AMERICAN 77 mL/min (90-120)
[2018-09-30 19:23] LABS: THYROID STIMULATING HORMONE 2.53 uIU/mL (0.36-3.74)
[2018-09-30 20:31] VITALS: BP 132/76; BMI 38.9
[2018-09-30] MEDS ORDERED: HYDROCODON-ACE1 EA10 PO (20:38)
[2018-09-30] MEDS ORDERED: ATIVAN0.5 MG PO (20:39)
[2018-10-01 03:31] VITALS: BP 140/89
[2018-10-01 08:51] VITALS: BP 143/85
[2018-10-01 12:01] VITALS: BP 125/66
--- NOTE | 2018-10-01 16:21 | MORECARE ---
CASE MANAGEMENT DISCHARGE SUMMARY PATIENT: WALLY DUMONT UNIT: [id number] ADM DATE: 09/30/18 AGE: 58 : 56 SEX: F ROOM/BED: D.1213 AUTHOR: TATO AKERS PHYSICIAN: REFERRING PHYSICIAN: JHONNY HARRIS MD DATE OF SERVICE: 10/01/18 Discharge Plan Patient Name: WALLY DUMONT Facility: [facility]:[place] : 1960 Planned Disposition: Chcf Facility Anticipated Discharge Date: Discharge Date: Expected LOS: Initial Reviewer: [email or web address] Initial Review Date: 09/30/2018 Generated: 10/01/18 5:21 pm Patient Name: WALLY DUMONT Page [id number] at 1621 All edits/amendments must be made on the electronic document DICTATION DATE: 10/01/181620 CHERRY PICKER OPERATOR: MOLLY 10/01/181620 RPT#: [id number] DC DATE: STATUS: ADM IN [facility] [address] [place] [address] END OF REPORT
--- NOTE | 2018-10-01 16:43 | MORECARE ---
CASE MANAGEMENT DISCHARGE SUMMARY PATIENT: WALLY DUMONT UNIT: [id number] ADM DATE: 09/30/18 AGE: 58 : 56 SEX: F ROOM/BED: D.1213 AUTHOR: TATO AKERS PHYSICIAN: REFERRING PHYSICIAN: JHONNY HARRIS MD DATE OF SERVICE: 10/01/18 Discharge Plan Patient Name: WALLY DUMONT Facility: [facility]:[place] : 1960 Planned Disposition: Assisted Facility Anticipated Discharge Date: Discharge Date: Expected LOS: Initial Reviewer: [id number] Initial Review Date: 09/30/2018 Generated: 10/01/18 5:43 pm External Providers External Provider: OTHER-OTHER Next Contact Date: Service Request Date: Service Type: Resolution: Reviewer: Comments: Last DP export: 10/01/18 3:21 p Patient Name: WALLY DUMONT Page [id number] at 1643 All edits/amendments must be made on the electronic document DICTATION DATE: 10/01/181642 ALTERATION WORKER: MOLLY 10/01/181642 RPT#: [id number] MI DATE: STATUS: ADM IN [facility] [address] [place] [address] END OF REPORT
[2018-10-01 17:09] VITALS: BP 150/69
--- NOTE | 2018-10-01 17:14 | MORECARE ---
CASE MANAGEMENT DISCHARGE SUMMARY PATIENT: WALLY DUMONT UNIT: [id number] ADM DATE: 09/30/18 AGE: 58 : 56 SEX: F ROOM/BED: D.1213 AUTHOR: TATO AKERS PHYSICIAN: REFERRING PHYSICIAN: JHONNY HARRIS MD DATE OF SERVICE: 10/01/18 Discharge Plan Patient Name: WALLY DUMONT Facility: [facility]:[place] : 1960 Planned Disposition: Prison Facility Anticipated Discharge Date: Discharge Date: Expected LOS: Initial Reviewer: [id number] Initial Review Date: 09/30/2018 Generated: 10/01/18 6:13 pm Comments DCP- Discharge Planning Updated by [email or web address]: Hui Gorman on 10/01/18 4:[address] LATE ENTRY 1500 CM SPOKE W/ [facility] ON HIS ROUNDS THIS AM. HE ADVISED THAT HE AND THE PATIENT HAD BEEN DISCUSSING SKILLED REHAB THE PATIENT HAS HAD 4 FALLS IN 7 DAYS AND WAS NOT MANAGING SAFELY AT HOME. SHE WAS RECENTLY DISCHARGED FROM [facility]. DISCUSSED ACUTE REHAB VS SKILLED REHAB. REHAB PRESCREEN ORDERED AND CASE MANAGEMENT CONSULT. THE PATIENT'S CHOICE WAS [facility] FOR SKILLED. TC TO [facility] AND CM SPOKE WITH ARMAND. ARMAND IS FAMILIAR WITH THE PATIENT. SHE STATES THEY HAD CONTACTED THE INSURANCE COMPANY AND FORWARDED A REFERRAL AND THE PATIENT WAS DENIED. SHAHEEN ADVISED THE PATIENT WILL HAVE AN UPDATED PT AND OT EVAL. CM SPOKE WITH THE PATIENT TO DETERMINE HER HOME HEALTH PROVIDER. THE PATIENT HAS BEEN ON CARE W/ [facility]. SHAHEEN SPOKE WITH GIANCARLO. THE PATIENT'S NURSE. SHE STATED THE PATIENT WAS RECEIVING SN, PT, OT, SPEECH AND GLOVE TURNER AND FORMER AUTOMATIC SERVICES. CM ADVISED THEPLAN AT THIS TIME WAS DISCHARGE TO A FDC FACILITY. CM WILL KEPT [facility] UPDATED. WILL NEED TO FOLLOW UP WITH INSURER FOR AUTH WHEN PT AND OT EVALS HAVE BEEN OBTAINED. PT EVAL DONE. ACUTE REHAB PRESCREEN NOTES STATE INSURER UNLIKELY TO APPROVE ANOTHER ACUTE REHAB STAY. Last DP export: 10/01/18 3:43 p Patient Name: WALLY DUMONT Page [phone] at 1714 All edits/amendments must be made on the electronic document DICTATION DATE: 10/01/181712 SALES REPRESENTATIVE PUBLIC UTILITIES: MOLLY 10/01/181712 RPT#: [id number] DC DATE: STATUS: ADM IN [facility] [address] [place] [address] END OF REPORT
--- NOTE | 2018-10-01 19:37 | MORECARE ---
CASE MANAGEMENT DISCHARGE SUMMARY PATIENT: WALLY DUMONT UNIT: [id number] ADM DATE: 09/30/18 AGE: 58 : 56 SEX: F ROOM/BED: D.1213 AUTHOR: OSWALD,DOC PHYSICIAN: REFERRING PHYSICIAN: JHONNY HARRIS MD DATE OF SERVICE: 10/01/18 Discharge Plan Patient Name: WALLY DUMONT Facility: [facility]:[place] : 1960 Planned Disposition: Long Term Facility Anticipated Discharge Date: Discharge Date: Expected LOS: Initial Reviewer: [email or web address] Initial Review Date: 09/30/2018 Generated: 10/01/18 8:37 pm Comments DCP- Discharge Planning Updated by [email or web address]: Hui Gorman on 10/01/18 6:[address] ARMAND ADVISED THE PATIENT WILL LIKELY NEED A CLAUDIO SHE HAS A HISTORY OF ANXIETY AND SERVICES W/ [facility]. DCP- Discharge Planning Updated by [email or web address]: Hui Gorman on 10/01/18 6:[address] LATE ENTRY 1500 SHAHEEN SPOKE W/ [facility] ON HIS ROUNDS THIS AM. HE ADVISED THAT HE AND THE PATIENT HAD BEEN DISCUSSING SKILLED REHAB THE PATIENT HAS HAD 4 FALLS IN 7 DAYS AND WAS NOT MANAGING SAFELY AT HOME. SHE WAS RECENTLY DISCHARGED FROM [facility]. DISCUSSED ACUTE REHAB VS SKILLED REHAB. REHAB PRESCREEN ORDERED AND CASE MANAGEMENT CONSULT. THE PATIENT'S CHOICE WAS [facility] FOR SKILLED. TC TO [facility] AND CM SPOKE WITH ARMAND. ARMAND IS FAMILIAR WITH THE PATIENT. SHE STATES THEY HAD CONTACTED THE INSURANCE COMPANY AND FORWARDED A REFERRAL AND THE PATIENT WAS DENIED. SHAHEEN ADVISED THE PATIENT WILL HAVE AN UPDATED PT AND OT EVAL. SHAHEEN SPOKE WITH THE PATIENT TO DETERMINE HER HOME HEALTH PROVIDER. THE PATIENT HAS BEEN ON CARE W/ [facility]. SHAHEEN SPOKE WITH GIANCARLO. THE PATIENT'S NURSE. SHE STATED THE PATIENT WAS RECEIVING SN, PT, OT, SPEECH AND SUPERVISOR PRE WAVE SERVICES. SHAHEEN ADVISED THE PLAN AT THIS TIME WAS DISCHARGE TO A INTERMEDIATE FACILITY. SHAHEEN WILL KEPT [facility] UPDATED. WILL NEED TO FOLLOW UP WITH INSURER FOR AUTH WHEN PT AND OT EVALS HAVE BEEN OBTAINED. PT EVAL DONE. ACUTE REHAB PRESCREEN NOTES STATE INSURER UNLIKELY TO APPROVE ANOTHER ACUTE REHAB STAY. Last DP export: 10/01/18 4:14 p Patient Name: WALLY DUMONT Page [id number] at 1937 All edits/amendments must be made on the electronic document DICTATION DATE: 10/01/181936 DELIVERY ROOM CLERK: MOLLY 10/01/181936 RPT#: [id number] DC DATE: STATUS: ADM IN [facility] [address] [place] [address] END OF REPORT
[2018-10-01 20:00] VITALS: BP 109/62
[2018-10-01] MEDS ORDERED: SEROQUEL25 MG PO (21:08)
[2018-10-02] VITALS: BP 88/50
[2018-10-02 04:00] VITALS: BP 101/50
[2018-10-02 08:00] VITALS: BP 99/44
[2018-10-02 18:41] VITALS: BP 139/84
[2018-10-02 20:24] VITALS: BP 102/64
[2018-10-03 01:04] VITALS: BP 92/53
[2018-10-03 04:15] VITALS: BP 96/56
[2018-10-03 08:14] VITALS: BP 108/65
[2018-10-03 17:41] VITALS: BP 121/68
[2018-10-03 20:31] VITALS: BP 139/75
[2018-10-04 00:35] VITALS: BP 92/57
[2018-10-04 04:33] VITALS: BP 95/48
[2018-10-04 09:33] VITALS: BP 101/65
[2018-10-04 09:48] VITALS: Ht 162.6 cm; Wt 102.5 kg
--- NOTE | 2018-10-04 11:30 | MORECARE ---
CASE MANAGEMENT DISCHARGE SUMMARY PATIENT: WALLY DUMONT UNIT: [id number] ADM DATE: 09/30/18 AGE: 58 : 56 SEX: F ROOM/BED: D.1213 AUTHOR: OSWALD,DOC PHYSICIAN: REFERRING PHYSICIAN: JHONNY HARRIS MD DATE OF SERVICE: 10/04/18 Discharge Plan Patient Name: WALLY DUMONT Facility: [facility]:[place] : 1960 Planned Disposition: Jail Facility Anticipated Discharge Date: Discharge Date: Expected LOS: Initial Reviewer: [id number] Initial Review Date: 09/30/2018 Generated: 10/04/18 12:30 pm Comments DCP- Discharge Planning Updated by [email or web address]: Wanda Bain on 10/04/18 10:[address] SHAHENE spoke with [facility] [place] and they stated that insurance had approved patient but she was needing CLAUDIO that is the reason she came to the hospital to expedite the process CM will get CLAUDIO completed and sent in for placement. DCP- Discharge Planning Updated by [email or web address]: Hui Gorman on 10/01/18 6:[address] ARMAND ADVISED THE PATIENT WILL LIKELY NEED A CLAUDIO SHE HAS A HISTORY OF ANXIETY AND SERVICES W/ [facility]. DCP- Discharge Planning Updated by [email or web address]: Hui Gorman on 10/01/18 6:[address] LATE ENTRY 1500 [address] SPO[address] W/ [facility] ON HIS ROUNDS THIS AM. HE ADVISED THAT HE AND THE PATIENT HAD BEEN DISCUSSING SKILLED REHAB THE PATIENT HAS HAD 4 FALLS IN 7 DAYS AND WAS NOT MANAGING SAFELY AT HOME. SHE WAS RECENTLY DISCHARGED FROM [facility]. DISCUSSED ACUTE REHAB VS SKILLED REHAB. REHAB PRESCREEN ORDERED AND CASE MANAGEMENT CONSULT. THE PATIENT'S CHOICE WAS [facility] FOR SKILLED. [facility] AND CM SPOKE WITH ARMAND. ARMAND IS FAMILIAR WITH THE PATIENT. SHE STATES THEY HAD CONTACTED THE INSURANCE COMPANY AND FORWARDED A REFERRAL AND THE PATIENT WAS DENIED. SHAHEEN ADVISED THE PATIENT WILL HAVE AN UPDATED PT AND OT EVAL. SHAHEEN SPOKE WITH THE PATIENT TO DETERMINE HER HOME HEALTH PROVIDER. THE PATIENT HAS BEEN ON CARE W/ [facility]. SHAHEEN SPOKE WITH GIANCARLO. THE PATIENT'S NURSE. SHE STATED THE PATIENT WAS RECEIVING SN, PT, OT, SPEECH AND FLOUR INSPECTOR SERVICES. CM ADVISED THE PLAN AT THIS TIME WAS DISCHARGE TO A DETENTION FACILITY. CM WILL KEPT [facility] UPDATED. WILL NEED TO FOLLOW UP WITH INSURER FOR AUTH WHEN PT AND OT EVALS HAVE BEEN OBTAINED. PT EVAL DONE. ACUTE REHAB PRESCREEN NOTES STATE INSURER UNLIKELY TO APPROVE ANOTHER ACUTE REHAB STAY. Last DP export: 10/01/18 6:37 p Patient Name: WALLY DUMONT Page 97834 at 1130 All edits/amendments must be made on the electronic document DICTATION DATE: 10/04/18 1130 VOCATIONAL DIRECTOR: MOLLY 10/04/18 1130 RPT#: [id number] DC DATE: STATUS: ADM IN [facility] [address] [place] [address] END OF REPORT
[2018-10-04 12:16] VITALS: BP 101/58
[2018-10-04] MEDS ORDERED: NORVASC5 MG PO (13:10)
[2018-10-04] MEDS ORDERED: LISINOPRIL10 MG PO (13:10)
--- NOTE | 2018-10-04 15:51 | MORECARE ---
CASE MANAGEMENT DISCHARGE SUMMARY PATIENT: WALLY DUMONT UNIT: [id number] ADM DATE: 09/30/18 AGE: 58 : 56 SEX: F ROOM/BED: D.1213 AUTHOR: OSWALD,DOC PHYSICIAN: REFERRING PHYSICIAN: JHONNY HARRIS MD DATE OF SERVICE: 10/04/18 Discharge Plan Patient Name: WALLY DUMONT Facility: [facility]:[place] : 1960 Planned Disposition: Custodial Facility Anticipated Discharge Date: Discharge Date: Expected LOS: Initial Reviewer: [id number] Initial Review Date: 09/30/2018 Generated: 10/04/18 4:51 pm Comments DCP- Discharge Planning Updated by [email or web address]: Wanda Bain on 10/04/18 10:[address] SHAHEEN spoke with [facility] [place] and they stated that insurance had approved patient but she was needing CLAUDIO that is the reason she came to the hospital to expedite the process CM will get CLAUDIO completed and sent in for placement. DCP- Discharge Planning Updated by [email or web address]: Hui Gorman on 10/01/18 6:[address] ARMAND ADVISED THE PATIENT WILL LIKELY NEED A CLAUDIO SHE HAS A HISTORY OF ANXIETY AND SERVICES W/ [facility]. DCP- Discharge Planning Updated by [id number]: Hui Gorman on 10/01/18 6:[address] LATE ENTRY 1500 SHAHEEN SPOKE W/ [facility] ON HIS ROUNDS THIS AM. HE ADVISED THAT HE AND THE PATIENT HAD BEEN DISCUSSING SKILLED REHAB THE PATIENT HAS HAD 4 FALLS IN 7 DAYS AND WAS NOT MANAGING SAFELY AT HOME. SHE WAS RECENTLY DISCHARGED FROM [facility]. DISCUSSED ACUTE REHAB VS SKILLED REHAB. REHAB PRESCREEN ORDERED AND CASE MANAGEMENT CONSULT. THE PATIENT'S CHOICE WAS [facility]. [facility] AND CM SPOKE WITH ARMAND. ARMAND IS FAMILIAR WITH THE PATIENT. SHE STATES THEY HAD CONTACTED THE INSURANCE COMPANY AND FORWARDED A REFERRAL AND THE PATIENT WAS DENIED. SHAHEEN ADVISED THE PATIENT WILL HAVE AN UPDATED PT AND OT EVAL. SHAHEEN SPOKE WITH THE PATIENT TO DETERMINE HER HOME HEALTH PROVIDER. THE PATIENT HAS BEEN ON CARE W/ [facility]. SHAHEEN SPOKE WITH GIANCARLO. THE PATIENT'S NURSE. SHE STATED THE PATIENT WAS RECEIVING SN, PT, OT, SPEECH AND GOLD BLOWER SERVICES. CM ADVISED THE PLAN AT THIS TIME WAS DISCHARGE TO A [facility] FACILITY. CM WILL KEPT [facility] UPDATED. WILL NEED TO FOLLOW UP WITH INSURER FOR AUTH WHEN PT AND OT EVALS HAVE BEEN OBTAINED. PT EVAL DONE. ACUTE REHAB PRESCREEN NOTES STATE INSURER UNLIKELY TO APPROVE ANOTHER ACUTE REHAB STAY. External Providers External Provider: [facility] Next Contact Date: Service Request Date: Service Type: Resolution: Reviewer: Comments: Last DP export: 10/04/18 10:30 a Patient Name: WALLY DUMONT Page 00211 at 1551 All edits/amendments must be made on the electronic document DICTATION DATE: 10/04/18 155 FRONT OFFICE DIRECTOR: MOLLY 10/04/181550 RPT#: [id number] DC DATE: STATUS: ADM IN [facility] [address] [place] [address] END OF REPORT
[2018-10-04 16:20] VITALS: BP 111/66
--- NOTE | 2018-10-04 16:37 | MORECARE ---
CASE MANAGEMENT DISCHARGE SUMMARY PATIENT: WALLY DUMONT UNIT: [id number] ADM DATE: 09/30/18 AGE: 58 : 56 SEX: F ROOM/BED: D.1213 AUTHOR: OSWALD,DOC PHYSICIAN: REFERRING PHYSICIAN: JHONNY HARRIS MD DATE OF SERVICE: 10/04/18 Discharge Plan Patient Name: WALLY DUMONT Facility: [facility]:[place] : 1960 Planned Disposition: Prison Facility Anticipated Discharge Date: Discharge Date: Expected LOS: Initial Reviewer: [id number] Initial Review Date: 09/30/2018 Generated: 10/04/18 5:37 pm Comments DCP- Discharge Planning Updated by [id number]: Wanda Bain on 10/04/18 10:[address] SHAEHEN spoke with [facility] [place] and they stated that insurance had approved patient but she was needing CLAUDIO that is the reason she came to the hospital to expedite the process CM will get CLAUDIO completed and sent in for placement. DCP- Discharge Planning Updated by [id number]: Hui Gorman on 10/01/18 6:[address] ARMAND ADVISED THE PATIENT WILL LIKELY NEED A CLAUDIO SHE HAS A HISTORY OF ANXIETY AND SERVICES W/ [facility]. DCP- Discharge Planning Updated by [email or web address]: Hui Gorman on 10/01/18 6:[address] LATE ENTRY 1500 SHAHEEN SPOKE W/ [facility] ON HIS ROUNDS THIS AM. HE ADVISED THAT HE AND THE PATIENT HAD BEEN DISCUSSING SKILLED REHAB THE PATIENT HAS HAD 4 FALLS IN 7 DAYS AND WAS NOT MANAGING SAFELY AT HOME. SHE WAS RECENTLY DISCHARGED FROM [facility]. DISCUSSED ACUTE REHAB VS SKILLED REHAB. REHAB PRESCREEN ORDERED AND CASE MANAGEMENT CONSULT. THE PATIENT'S CHOICE WAS [facility]ED. [facility] AND CM SPOKE WITH ARMAND. ARMAND IS FAMILIAR WITH THE PATIENT. SHE STATES THEY HAD CONTACTED THE INSURANCE COMPANY AND FORWARDED A REFERRAL AND THE PATIENT WAS DENIED. SHAHEEN ADVISED THE PATIENT WILL HAVE AN UPDATED PT AND OT EVAL. SHAHEEN SPOKE WITH THE PATIENT TO DETERMINE HER HOME HEALTH PROVIDER. THE PATIENT HAS BEEN ON CARE W/ [facility]. SHAHEEN SPOKE WITH GIANCARLO. THE PATIENT'S NURSE. SHE STATED THE PATIENT WAS RECEIVING SN, PT, OT, SPEECH AND ARMATURE COIL WINDER SERVICES. CM ADVISED THE PLAN AT THIS TIME WAS DISCHARGE TO A NURSING HOME FACILITY. CM WILL KEPT [facility] UPDATED. WILL NEED TO FOLLOW UP WITH INSURER FOR AUTH WHEN PT AND OT EVALS HAVE BEEN OBTAINED. PT EVAL DONE. ACUTE REHAB PRESCREEN NOTES STATE INSURER UNLIKELY TO APPROVE ANOTHER ACUTE REHAB STAY. External Providers External Provider: KARMA Rivera Next Contact Date: Service Request Date: Service Type: Resolution: Reviewer: Comments: Last DP export: 10/04/18 2:51 p Patient Name: WALLY DUMONT Page 99994 at 1637 All edits/amendments must be made on the electronic document DICTATION DATE: 10/04/181635 PAYER SPECIALIST: MOLLY 10/04/18 163 RPT#: [id number] DC DATE: STATUS: ADM IN [facility] [address] [place] [address] END OF REPORT
--- NOTE | 2018-10-04 17:46 | MORECARE ---
CASE MANAGEMENT DISCHARGE SUMMARY PATIENT: WALLY DUMONT UNIT: [id number] ADM DATE: 09/30/18 AGE: 58 : 56 SEX: F ROOM/BED: D.1213 AUTHOR: OSWALD,DOC PHYSICIAN: REFERRING PHYSICIAN: JHONNY HARRIS MD DATE OF SERVICE: 10/04/18 Discharge Plan Patient Name: WALLY DUMONT Facility: [facility]:[place] : 1960 Planned Disposition: Snf Facility Anticipated Discharge Date: Discharge Date: Expected LOS: Initial Reviewer: [email or web address] Initial Review Date: 09/30/2018 Generated: 10/04/18 6:46 pm Comments DCP- Discharge Planning Updated by [id number]: Wanda Bain on 10/04/18 4:[address] CM HAS SENT CLAUDIO FOR EVALUATION AWAITING RESULTS. SHAHEEN HAS FAXED UPDATES TO [facility] FOR INSURANCE AUTH. CM AWAITING RESPONSE FROM [facility]. DCP- Discharge Planning Updated by [email or web address]: Wanda Bain on 10/04/18 10:[address] SHAHEEN spoke with [facility] and they stated that insurance had approved patient but she was needing CLAUDIO that is the reason she came to the hospital to expedite the process CM will get CLAUDIO completed and sent in for placement. DCP- Discharge Planning Updated by [email or web address]: Hui Gorman on 10/01/18 6:[address] ARMAND ADVISED THE PATIENT WILL LIKELY NEED A CLAUDIO SHE HAS A HISTORY OF ANXIETY AND SERVICES W/ [facility]. DCP- Discharge Planning Updated by [id number]: Hui Gorman on 10/01/18 6:[address] LATE ENTRY 1500 CM SPOKE W/ [facility]IMARY ON HIS ROUNDS THIS AM. HE ADVISED THAT HE AND THE PATIENT HAD BEEN DISCUSSING SKILLED REHAB THE PATIENT HAS HAD 4 FALLS IN 7 DAYS AND WAS NOT MANAGING SAFELY AT HOME. SHE WAS RECENTLY DISCHARGED FROM [facility]. DISCUSSED ACUTE REHAB VS SKILLED REHAB. REHAB PRESCREEN ORDERED AND CASE MANAGEMENT CONSULT. THE PATIENT'S CHOICE WAS [facility] FOR SKILLED. TC TO [facility] AND CM SPOKE WITH ARMAND. ARMAND IS FAMILIAR WITH THE PATIENT. SHE STATES THEY HAD CONTACTED THE INSURANCE COMPANY AND FORWARDED A REFERRAL AND THE PATIENT WAS DENIED. CM ADVISED THE PATIENT WILL HAVE AN UPDATED PT AND OT EVAL. CM SPOKE WITH THE PATIENT TO DETERMINE HER HOME HEALTH PROVIDER. THE PATIENT HAS BEEN ON CARE W/ [facility]. CM SPOKE WITH GIANCARLO. THE PATIENT'S NURSE. SHE STATED THE PATIENT WAS RECEIVING SN, PT, OT, SPEECH AND PLATFORM BUILDER SERVICES. CM ADVISED THE PLAN AT THIS TIME WAS DISCHARGE TO A LONGTERM FACILITY. CM WILL KEPT [facility] UPDATED. WILL NEED TO FOLLOW UP WITH INSURER FOR AUTH WHEN PT AND OT EVALS HAVE BEEN OBTAINED. PT EVAL DONE. ACUTE REHAB PRESCREEN NOTES STATE INSURER UNLIKELY TO APPROVE ANOTHER ACUTE REHAB STAY. Last DP export: 10/04/18 3:37 p Patient Name: WALLY DUMONT Page 92218 at 5232 All edits/amendments must be made on the electronic document DICTATION DATE: 10/04/181745 COBBLER MCKAY: MOLLY 10/04/181745 RPT#: [id number] DC DATE: STATUS: ADM IN [facility] [address] [place] [address] END OF REPORT
[2018-10-04 20:00] VITALS: BP 115/75
[2018-10-05] VITALS: BP 96/62
[2018-10-05 04:00] VITALS: BP 98/57
--- NOTE | 2018-10-05 08:53 | MORECARE ---
CASE MANAGEMENT DISCHARGE SUMMARY PATIENT: WALLY DUMONT UNIT: [id number] ADM DATE: 09/30/18 AGE: 58 : 56 SEX: F ROOM/BED: D.1213 AUTHOR: OSWALD,DOC PHYSICIAN: REFERRING PHYSICIAN: JHONNY HARRIS MD DATE OF SERVICE: 10/05/18 Discharge Plan Patient Name: WALLY DUMONT Facility: [facility]:[place] : 1960 Planned Disposition: Correction Facility Anticipated Discharge Date: Discharge Date: Expected LOS: Initial Reviewer: [id number] Initial Review Date: 09/30/2018 Generated: 10/05/18 9:52 am Comments DCP- Discharge Planning Updated by [id number]: Deepika Salamanca on 10/05/18 7:[address] Cm spoke to [facility] who stated they have not sent off for auth at this time. She will be sending the information to [facility] this AM and is hopeful that they will receive auth today. CM also called CLAUDIO, spoke to Anthony who stated they received the claudio and she will be looking at it sometime today. CM will await authorization and claudio. Both must be received before the patient can be discharged. Deepika Salamanca RN, [facility] . DCP- Discharge Planning Updated by [id number]: Wanda Bain on 10/04/18 4:[address] CM HAS SENT CLAUDIO FOR EVALUATION AWAITING RESULTS. CM HAS FAXED UPDATES TO [facility] FOR INSURANCE AUTH. CM AWAITING RESPONSE FROM [facility]. DCP- Discharge Planning Updated by [id number]: Wanda Bain on 10/04/18 10:[address] CM spoke with [facility] and they stated that insurance had approved patient but she was needing CLAUDIO that is the reason she came to the hospital to expedite the process CM will get CLAUDIO completed and sent in for placement. DCP- Discharge Planning Updated by [id number]: Hui Gorman on 10/01/18 6:[address] ARMAND ADVISED THE PATIENT WILL LIKELY NEED A CLAUDIO SHE HAS A HISTORY OF ANXIETY AND SERVICES W/ [facility]. DCP- Discharge Planning Updated by [id number]: Hui Gorman on 10/01/18 6:[address] LATE ENTRY 1500 CM SPOKE W/ [facility] ON HIS ROUNDS THIS AM. HE ADVISED THAT HE AND THE PATIENT HAD BEEN DISCUSSING SKILLED REHAB THE PATIENT HAS HAD 4 FALLS IN 7 DAYS AND WAS NOT MANAGING SAFELY AT HOME. SHE WAS RECENTLY DISCHARGED FROM [facility]. DISCUSSED ACUTE REHAB VS SKILLED REHAB. REHAB PRESCREEN ORDERED AND CASE MANAGEMENT CONSULT. THE PATIENT'S CHOICE WAS [facility] FOR SKILLED. TC TO [facility] AND CM SPOKE WITH ARMAND. ARMAND IS FAMILIAR WITH THE PATIENT. SHE STATES THEY HAD CONTACTED THE INSURANCE COMPANY AND FORWARDED A REFERRAL AND THE PATIENT WAS DENIED. SHAHEEN ADVISED THE PATIENT WILL HAVE AN UPDATED PT AND OT EVAL. CM SPOKE WITH THE PATIENT TO DETERMINE HER HOME HEALTH PROVIDER. THE PATIENT HAS BEEN ON CARE W/ [facility]. CM SPOKE WITH GIANCARLO. THE PATIENT'S NURSE. SHE STATED THE PATIENT WAS RECEIVING SN, PT, OT, SPEECH AND HEADING UP MACHINE OPERATOR SERVICES. CM ADVISED THE PLAN AT THIS TIME WAS DISCHARGE TO A HALFWAY FACILITY. CM WILL KEPT [facility] HEALTH UPDATED. WILL NEED TO FOLLOW UP WITH INSURER FOR AUTH WHEN PT AND OT EVALS HAVE BEEN OBTAINED. PT EVAL DONE. ACUTE REHAB PRESCREEN NOTES STATE INSURER UNLIKELY TO APPROVE ANOTHER ACUTE REHAB STAY. Last DP export: 10/04/18 4:46 p Patient Name: WALLY DUMONT Page [id number] at 0853 All edits/amendments must be made on the electronic document DICTATION DATE: 10/05/18851 BEEF PUSHER: MOLLY 10/05/1852 RPT#: [id number] DC DATE: STATUS: ADM IN [facility] [address] [place] [address] END OF REPORT
--- NOTE | 2018-10-05 14:07 | MORECARE ---
CASE MANAGEMENT DISCHARGE SUMMARY PATIENT: WALLY DUMONT UNIT: [id number] ADM DATE: 09/30/18 AGE: 58 : 56 SEX: F ROOM/BED: D.1213 AUTHOR: OSWALD,DOC PHYSICIAN: REFERRING PHYSICIAN: JHONNY HARRIS MD DATE OF SERVICE: 10/05/18 Discharge Plan Patient Name: WALLY DUMONT Facility: [facility]:[place] : 1960 Planned Disposition: Care Home Facility Anticipated Discharge Date: Discharge Date: Expected LOS: Initial Reviewer: [id number] Initial Review Date: 09/30/2018 Generated: 10/05/18 3:07 pm Comments DCP- Discharge Planning Updated by [id number]: Wanda Bain on 10/05/18 1:[address] CM received notice from [place] that form needed some corrections. CM corrected the matter and has refaxed paperwork back to [place] for determination. CM will continue to follow and assist as needed with discharge planning / needs. DCP- Discharge Planning Updated by [id number]: Deepika Salamanca on 10/05/18 7:[address] Cm spoke to [facility] who stated they have not sent off for auth at this time. She will be sending the information to [employer] this AM and is hopeful that they will receive auth today. CM also called CLAUDIO, spoke to Anthony who stated they received the claudio and she will be looking at it sometime today. CM will await authorization and claudio. Both must be received before the patient can be discharged. Deepika Salamanca RN, [facility] . DCP- Discharge Planning Updated by [id number]: Wanda Bain on 10/04/18 4:[address] CM HAS SENT CLAUDIO FOR EVALUATION AWAITING RESULTS. CM HAS FAXED UPDATES TO [facility] FOR INSURANCE AUTH. CM AWAITING RESPONSE FROM [facility]. DCP- Discharge Planning Updated by [id number]: Wanda Bain on 10/04/18 10:[address] CM spoke with [facility] and they stated that insurance had approved patient but she was needing CLAUDIO that is the reason she came to the hospital to expedite the process CM will get CLAUDIO completed and sent in for placement. DCP- Discharge Planning Updated by [id number]: Hui Gorman on 10/01/18 6:[address] ARMAND ADVISED THE PATIENT WILL LIKELY NEED A CLAUDIO SHE HAS A HISTORY OF ANXIETY AND SERVICES W/ [facility]. DCP- Discharge Planning Updated by [email or web address]: Hui Gorman on 10/01/18 6:[address] LATE ENTRY 1500 CM SPOKE W/ [facility] ON HIS ROUNDS THIS AM. HE ADVISED THAT HE AND THE PATIENT HAD BEEN DISCUSSING SKILLED REHAB THE PATIENT HAS HAD 4 FALLS IN 7 DAYS AND WAS NOT MANAGING SAFELY AT HOME. SHE WAS RECENTLY DISCHARGED FROM [facility]. DISCUSSED ACUTE REHAB VS SKILLED REHAB. REHAB PRESCREEN ORDERED AND CASE MANAGEMENT CONSULT. THE PATIENT'S CHOICE WAS [facility] FOR SKILLED. TC TO [facility] AND CM SPOKE WITH ARMAND. ARMAND IS FAMILIAR WITH THE PATIENT. SHE STATES THEY HAD CONTACTED THE INSURANCE COMPANY AND FORWARDED A REFERRAL AND THE PATIENT WAS DENIED. CM ADVISED THE PATIENT WILL HAVE AN UPDATED PT AND OT EVAL. CM SPOKE WITH THE PATIENT TO DETERMINE HER HOME HEALTH PROVIDER. THE PATIENT HAS BEEN ON CARE W/ [facility]. CM SPOKE WITH GIANCARLO. THE PATIENT'S NURSE. SHE STATED THE PATIENT WAS RECEIVING SN, PT, OT, SPEECH AND SHAPER AND PRESSER SERVICES. SHAHEEN ADVISED THE PLAN AT THIS TIME WAS DISCHARGE TO A HALFWAY FACILITY. CM WILL KEPT [facility] HOME HEALTH UPDATED. WILL NEED TO FOLLOW UP WITH INSURER FOR AUTH WHEN PT AND OT EVALS HAVE BEEN OBTAINED. PT EVAL DONE. ACUTE REHAB PRESCREEN NOTES STATE INSURER UNLIKELY TO APPROVE ANOTHER ACUTE REHAB STAY. Last DP export: 10/05/18 7:53 a Patient Name: WALLY DUMONT Page [phone] at 1407 All edits/amendments must be made on the electronic document DICTATION DATE: 10/05/181405 SEWING MACHINE BOBBIN WINDER: MOLLY 10/05/181405 RPT#: [id number] DC DATE: STATUS: ADM IN [facility] [address] [place] [address] END OF REPORT
[2018-10-05 20:19] VITALS: BP 93/57
[2018-10-06 00:10] VITALS: BP 103/58
[2018-10-06 03:46] VITALS: BP 91/57
[2018-10-06 10:15] VITALS: BP 122/53
[2018-10-06 18:12] VITALS: BP 118/78
[2018-10-06 20:39] VITALS: BP 139/76
[2018-10-06 23:51] VITALS: BP 92/61
[2018-10-07 04:07] VITALS: BP 95/63
[2018-10-07 08:01] VITALS: BP 98/59
--- NOTE | 2018-10-07 09:00 | MORECARE ---
CASE MANAGEMENT DISCHARGE SUMMARY PATIENT: WALLY DUMONT UNIT: [id number] ADM DATE: 09/30/18 AGE: 58 : 56 SEX: F ROOM/BED: D.1213 AUTHOR: OSWALD,DOC PHYSICIAN: REFERRING PHYSICIAN: JHONNY HARRIS MD DATE OF SERVICE: 10/07/18 Discharge Plan Patient Name: WALLY DUMONT Facility: [facility]:[place] : 1960 Planned Disposition: Snf Facility Anticipated Discharge Date: Discharge Date: Expected LOS: Initial Reviewer: [id number] Initial Review Date: 09/30/2018 Generated: 10/07/18 10:00 am Comments DCP- Discharge Planning Updated by [id number]: Wanda Bain on 10/07/18 7:[address] CM received notification from Annmarie @ [facility] that auth had been approved. Annmarie stated they would arrange transportation for patient. CM notified Josef GEIGER that patient was approved for placement. CM will continue to follow and assist as needed with discharge planning / needs. DCP- Discharge Planning Updated by [id number]: Wanda Bain on 10/07/18 7:[address] LATE ENTRY - 10/06/18 CM contacted [facility] 0817 and spoke with Annmarie she stated they are still awaiting auth from [place]. 0950 CM received call back from Annmar[facility] stating Yvonne was requesting PT, OT and V/S updates. CM faxed updates and CLAUDIO approval to [facility]. 1413 CM called back to see if they had received auth yet and they stated not yet but would call as soon as they get it. CM spoke with patient and let her know what we are waiting on.CM will continue to follow and assist as needed with discharge planning / needs. DCP- Discharge Planning Updated by [email or web address]: Wanda Bain on 10/05/18 1:[address] CM received notice from [place] that form needed some corrections. CM corrected the matter and has refaxed paperwork back to [place] for determination. CM will continue to follow and assist as needed with discharge planning / needs. DCP- Discharge Planning Updated by [id number]: Deepika Salamanca on 10/05/18 7:[address] Cm spoke to [facility] @ [facility] who stated they have not sent off for auth at this time. She will be sending the information to insurance this AM and is hopeful that they will receive auth today. CM also called CLAUIDO, spoke to Anthony who stated they received the claudio and she will be looking at it sometime today. CM will await authorization and claudio. Both must be received before the patient can be discharged. Deepika Salamanca RN, [facility] . DCP- Discharge Planning Updated by [id number]: Wanda Bain on 10/04/18 4:[address] CM HAS SENT CLAUDIO FOR EVALUATION AWAITING RESULTS. CM HAS FAXED UPDATES TO [facility] FOR INSURANCE AUTH. CM AWAITING RESPONSE FROM [facility]. DCP- Discharge Planning Updated by [id number]: Wanda Bain on 10/04/18 10:[address] CM spoke with [facility] and they stated that insurance had approved patient but she was needing CLAUDIO that is the reason she came to the hospital to expedite the process CM will get CLAUDIO completed and sent in for placement. DCP- Discharge Planning Updated by [id number]: Hui Gorman on 10/01/18 6:[address] ARMAND ADVISED THE PATIENT WILL LIKELY NEED A CLAUDIO SHE HAS A HISTORY OF ANXIETY AND SERVICES W/ [facility]. DCP- Discharge Planning Updated by [email or web address]: Hui Gorman on 10/01/18 6:[address] LATE ENTRY 1500 CM SPOKE W/ [facility] ON HIS ROUNDS THIS AM. HE ADVISED THAT HE AND THE PATIENT HAD BEEN DISCUSSING SKILLED REHAB THE PATIENT HAS HAD 4 FALLS IN 7 DAYS AND WAS NOT MANAGING SAFELY AT HOME. SHE WAS RECENTLY DISCHARGED FROM [facility]. DISCUSSED ACUTE REHAB VS SKILLED REHAB. REHAB PRESCREEN ORDERED AND CASE MANAGEMENT CONSULT. THE PATIENT'S CHOICE WAS [facility] FOR SKILLED. TC TO [facility] AND CM SPOKE WITH ARMAND. ARMAND IS FAMILIAR WITH THE PATIENT. SHE STATES THEY HAD CONTACTED THE INSURANCE COMPANY AND FORWARDED A REFERRAL AND THE PATIENT WAS DENIED. SHAHEEN ADVISED THE PATIENT WILL HAVE AN UPDATED PT AND OT EVAL. SHAHEEN SPOKE WITH THE PATIENT TO DETERMINE HER HOME HEALTH PROVIDER. THE PATIENT HAS BEEN ON CARE W/ [facility]. SHAHEEN SPOKE WITH GIANCARLO. THE PATIENT'S NURSE. SHE STATED THE PATIENT WAS RECEIVING SN, PT, OT, SPEECH AND DEEP TISSUE MASSAGE THERAPIST SERVICES. CM ADVISED THE PLAN AT THIS TIME WAS DISCHARGE TO A RETIREMENT FACILITY. CM WILL KEPT [facility] HEALTH UPDATED. WILL NEED TO FOLLOW UP WITH INSURER FOR AUTH WHEN PT AND OT EVALS HAVE BEEN OBTAINED. PT EVAL DONE. ACUTE REHAB PRESCREEN NOTES STATE INSURER UNLIKELY TO APPROVE ANOTHER ACUTE REHAB STAY. Last DP export: 10/05/18 1:07 p Patient Name: WALLY DUMONT Page [phone] at 0900 All edits/amendments must be made on the electronic document DICTATION DATE: 10/07/18899 CLIENT RELATIONSHIP CONSULTANT: MOLLY 10/07/18899 RPT#: [id number] DC DATE: STATUS: ADM IN [facility] [address] [place] [address] END OF REPORT
[2018-10-07 11:06] VITALS: BP 135/62
--- NOTE | 2018-10-07 11:12 | MORECARE ---
CASE MANAGEMENT DISCHARGE SUMMARY PATIENT: WALLY DUMONT UNIT: [id number] ADM DATE: 09/30/18 AGE: 58 : 56 SEX: F ROOM/BED: D.1213 AUTHOR: OSWALD,DOC PHYSICIAN: REFERRING PHYSICIAN: JHONNY HARRIS MD DATE OF SERVICE: 10/07/18 Discharge Plan Patient Name: WALLY DUMONT [facility] [facility] 1960 Planned Disposition: Intermediate Facility Anticipated Discharge Date: Discharge Date: Expected LOS: Initial Reviewer: [email or web address] Initial Review Date: 09/30/2018 Generated: 10/07/18 12:12 pm Comments DCP- Discharge Planning Updated by [id number]: Deepika Salamanca on 10/07/18 10:[address] DC PLAN: Discharging today to [facility] in a Medicare bed. Spoke to [facility], auth has been received, they will accept patient today. CM called Dr. Harris, order received for dc. CM placed order. Call back to [facility] to get a transportation time, spoke to Heather, poultry picking machine tender time 1130. Nurse to call report to [phone] to [facility]. CM notified Steff of poultry picking machine tender time and the number for report. Deepika Salamanca RN, [facility] DCP- Discharge Planning Updated by [id number]: Wanda Bain on 10/07/18 7:[address] CM received notification from Annmarie @ [facility] that auth had been approved. Annmarie stated they would arrange transportation for patient. CM notified Josef GEIGER that patient was approved for placement. CM will continue to follow and assist as needed with discharge planning / needs. DCP- Discharge Planning Updated by [email or web address]: Wanda Bain on 10/07/18 7:[address] LATE ENTRY - 10/06/18 CM contacted [facility] 0861 and spoke with Annmarie she stated they are still awaiting auth from Yvonne. 4930 CM received call back from Annmarie stating Yvonne was requesting PT, OT and V/S updates. CM faxed updates and CLAUDIO approval to [place]. 9644 CM called back to see if they had received auth yet and they stated not yet but would call as soon as they get it. CM spoke with patient and let her know what we are waiting on.CM will continue to follow and assist as needed with discharge planning / needs. DCP- Discharge Planning Updated by [id number]: Wanda Bain on 10/05/18 1:[address] CM received notice from [facility] that form needed some corrections. CM corrected the matter and has refaxed paperwork back to [facility] for determination. CM will continue to follow and assist as needed with discharge planning / needs. DCP- Discharge Planning Updated by [id number]: Deepika Salamanca on 10/05/18 7:[address] Cm spoke to [facility] who stated they have not sent off for auth at this time. She will be sending the information to insurance this AM and is hopeful that they will receive auth today. CM also called CLAUDIO, spoke to Anthony who stated they received the claudio and she will be looking at it sometime today. CM will await authorization and claudio. Both must be received before the patient can be discharged. Deepika Salamanca RN, [facility] . DCP- Discharge Planning Updated by [id number]: Wanda Bain on 10/04/18 4:[address] CM HAS SENT CLAUDIO FOR EVALUATION AWAITING RESULTS. CM HAS FAXED UPDATES TO [facility] FOR INSURANCE AUTH. CM AWAITING RESPONSE FROM [facility]. DCP- Discharge Planning Updated by [id number]: Wanda Bain on 10/04/18 10:[address] CM spoke with [facility] and they stated that insurance had approved patient but she was needing CLAUDIO that is the reason she came to the hospital to expedite the process CM will get CLAUDIO completed and sent in for placement. DCP- Discharge Planning Updated by [id number]: Hui Gorman on 10/01/18 6:[address] ARMAND ADVISED THE PATIENT WILL LIKELY NEED A CLAUDIO SHE HAS A HISTORY OF ANXIETY AND SERVICES W/ [facility]. DCP- Discharge Planning Updated by [email or web address]: Hui Gorman on 10/01/18 6:[address] LATE ENTRY 1500 CM SPOKE W/ [facility] ON HIS ROUNDS THIS AM. HE ADVISED THAT HE AND THE PATIENT HAD BEEN DISCUSSING SKILLED REHAB THE PATIENT HAS HAD 4 FALLS IN 7 DAYS AND WAS NOT MANAGING SAFELY AT HOME. SHE WAS RECENTLY DISCHARGED FROM [facility]. DISCUSSED ACUTE REHAB VS SKILLED REHAB. REHAB PRESCREEN ORDERED AND CASE MANAGEMENT CONSULT. [facility] TC TO [facility] AND CM SPOKE WITH ARMAND. ARMAND IS FAMILIAR WITH THE PATIENT. SHE STATES THEY HAD CONTACTED THE INSURANCE COMPANY AND FORWARDED A REFERRAL AND THE PATIENT WAS DENIED. CM ADVISED THE PATIENT WILL HAVE AN UPDATED PT AND OT EVAL. CM SPOKE WITH THE PATIENT TO DETERMINE HER HOME HEALTH PROVIDER. THE PATIENT HAS BEEN ON CARE W/ [facility]. CM SPOKE WITH GIANCARLO. THE PATIENT'S NURSE. SHE STATED THE PATIENT WAS RECEIVING SN, PT, OT, SPEECH AND DRAGLINE OPERATOR SERVICES. CM ADVISED THE PLAN AT THIS TIME WAS DISCHARGE TO A ALF FACILITY. CM WILL KEPT [facility] HOME HEALTH UPDATED. WILL NEED TO FOLLOW UP WITH INSURER FOR AUTH WHEN PT AND OT EVALS HAVE BEEN OBTAINED. PT EVAL DONE. ACUTE REHAB PRESCREEN NOTES STATE INSURER UNLIKELY TO APPROVE ANOTHER ACUTE REHAB STAY. Last DP export: 10/07/18 8:00 a Patient Name: WALLY DUMONT Page [phone] at 1112 All edits/amendments must be made on the electronic document DICTATION DATE: 10/07/18 1111 FRAMING MECHANIC: MOLLY 10/07/18 1111 RPT#: [id number] DC DATE: STATUS: ADM IN [facility] [address] [place] [address] END OF REPORT
--- NOTE | 2018-10-07 13:57 | MORECARE ---
CASE MANAGEMENT DISCHARGE SUMMARY PATIENT: WALLY DUMONT UNIT: [id number] ADM DATE: 09/30/18 AGE: 58 : 56 SEX: F ROOM/BED: D.1213 AUTHOR: OSWALD,DOC PHYSICIAN: REFERRING PHYSICIAN: JHONNY HARRIS MD DATE OF SERVICE: 10/07/18 Discharge Plan Patient Name: WALLY DUMONT Facility: [facility]:[place] : 1960 Planned Disposition: Senior Living Facility Anticipated Discharge Date: Discharge Date: 10/07/2018 Expected LOS: Initial Reviewer: [id number] Initial Review Date: 09/30/2018 Generated: 10/07/18 2:57 pm Comments DCP- Discharge Planning Updated by [id number]: Deepika Salamanca on 10/07/18 10:[address] DC PLAN: Discharging today to [facility] in a Medicare bed. Spoke to [facility], auth has been received, they will accept patient today. CM called Dr. Harris, order received for dc. CM placed order. Call back to [facility] to get a transportation time, spoke to Heather, pharmacy picking technician time 1130. Nurse to call report to [phone] to Heather. CM notified Steff of pharmacy picking technician time and the number for report. Deepika Salamanca RN, [facility] DCP- Discharge Planning Updated by [id number]: Wanda Bain on 10/07/18 7:[address] [facility] Annmarie stated they would arrange transportation for patient. CM notified Josef GEIGER that patient was approved for placement. CM will continue to follow and assist as needed with discharge planning / needs. DCP- Discharge Planning Updated by [id number]: Wanda Bain on 10/07/18 7:[address] LATE ENTRY - 10/06/18 CM contacted [facility] 0858 and spoke with Annmarie she stated they are still awaiting auth from Yvonne. 0906 CM received call back from [facility] stating Yvonne was requesting PT, OT and V/S updates. CM faxed updates and CLAUDIO approval to [facility]. 1969 CM called back to see if they had received auth yet and they stated not yet but would call as soon as they get it. CM spoke with patient and let her know what we are waiting on.CM will continue to follow and assist as needed with discharge planning / needs. DCP- Discharge Planning Updated by [id number]: Wanda Bain on 10/05/18 1:[address] CM received notice from [place] that form needed some corrections. CM corrected the matter and has refaxed paperwork back to [place] for determination. CM will continue to follow and assist as needed with discharge planning / needs. DCP- Discharge Planning Updated by [id number]: Deepika Salamanca on 10/05/18 7:[address] Cm spoke to [facility] who stated they have not sent off for auth at this time. She will be sending the information to insurance this AM and is hopeful that they will receive auth today. CM also called CLAUDIO, spoke to Anthony who stated they received the claudio and she will be looking at it sometime today. CM will await authorization and claudio. Both must be received before the patient can be discharged. Deepika Salamanca RN, C[facility] . DCP- Discharge Planning Updated by [email or web address]: Wanda Bain on 10/04/18 4:[address] CM HAS SENT CLAUDIO FOR EVALUATION AWAITING RESULTS. [facility]. CM [facility]ING [facility]. DCP- Discharge Planning Updated by [email or web address]: Wanda Bain on 10/04/18 10:[address] CM spoke with [facility] and they stated that insurance had approved patient but she was needing CLAUDIO that is the reason she came to the hospital to expedite the process CM will get CLAUDIO completed and sent in for placement. DCP- Discharge Planning Updated by [id number]: Hui Gorman on 10/01/18 6:[address] ARMAND ADVISED THE PATIENT WILL LIKELY NEED A CLAUDIO SHE HAS A HISTORY OF ANXIETY AND SERVICES W/ [facility]. DCP- Discharge Planning Updated by [id number]: Hui Gorman on 10/01/18 6:[address] LATE ENTRY 1500 CM SPOKE W/ [facility] ON HIS ROUNDS THIS AM. HE ADVISED THAT HE AND THE PATIENT HAD BEEN DISCUSSING SKILLED REHAB THE PATIENT HAS HAD 4 FALLS IN 7 DAYS AND WAS NOT MANAGING SAFELY AT HOME. SHE WAS RECENTLY DISCHARGED FROM [facility]. DISCUSSED ACUTE REHAB VS SKILLED REHAB. REHAB PRESCREEN ORDERED AND CASE MANAGEMENT CONSULT. [facility] AND CM SPOKE WITH ARMAND. ARMAND IS FAMILIAR WITH THE PATIENT. SHE STATES THEY HAD CONTACTED THE INSURANCE COMPANY AND FORWARDED A REFERRAL AND THE PATIENT WAS DENIED. CM ADVISED THE PATIENT WILL HAVE AN UPDATED PT AND OT EVAL. CM SPOKE WITH THE PATIENT TO DETERMINE HER HOME HEALTH PROVIDER. THE PATIENT HAS BEEN ON CARE W/ [facility]. CM SPOKE WITH GIANCARLO. THE PATIENT'S NURSE. SHE STATED THE PATIENT WAS RECEIVING SN, PT, OT, SPEECH AND STONE SETTER METAL OPTICAL FRAMES SERVICES. CM ADVISED THE PLAN AT THIS TIME WAS DISCHARGE TO A USP FACILITY. CM WILL KEPT [facility] HEALTH UPDATED. WILL NEED TO FOLLOW UP WITH INSURER FOR AUTH WHEN PT AND OT EVALS HAVE BEEN OBTAINED. PT EVAL DONE. ACUTE REHAB PRESCREEN NOTES STATE INSURER UNLIKELY TO APPROVE ANOTHER ACUTE REHAB STAY. Last DP export: 10/07/18 10:12 a Patient Name: WALLY DUMONT Page [phone] at 1357 All edits/amendments must be made on the electronic document DICTATION DATE: 10/07/18 7470 BREASTFEEDING EDUCATOR: MOLLY 10/07/18 1354 RPT#: [id number] DC DATE:10/07/18 STATUS: DIS IN [facility] [address] [place] [address] END OF REPORT
== END 2018-10-07 11:49 ==
LOC: D.ER 17:12 → D.M3 18:52 → OBSVTIME 18:58 → D.M3 10-07 11:49
PROVIDERS: Emergency Medicine; ADMIT Family Medicine; ATTEND Family Medicine
DX: I69.351 Hemiplegia and hemiparesis following cerebral infarction affecting right dominant side (principal); J44.9 Chronic obstructive pulmonary disease, unspecified; E11.9 Type 2 diabetes mellitus without complications; I10 Essential (primary) hypertension; F41.9 Anxiety disorder, unspecified; Z91.81 History of falling